=== PATIENT | male | born 1995 | race Two or more races ===

== ENCOUNTER 2022-06-28 20:02 | Emergency (ER) | payer OTHER ==
[~2022-06-28] VITALS: Ht 165.1 cm; Wt 73.5 kg
[2022-06-28 20:18] VITALS: BP 111/72
[2022-06-28] MEDS ORDERED: TETANUS-DIPTH-ACEL PERTUSSIS 0.5ML SYR Tdap IM ONE (21:30)
[2022-06-28] MEDS ORDERED: AMOX500T86 PO (21:33)
== END 2022-06-28 22:16 | disposition home or self-care (01) ==
LOC: ER 20:02
DX: S81.832A Puncture wound without foreign body, left lower leg, initial encounter (principal); S81.852A Open bite, left lower leg, initial encounter; Z79.2 Long term (current) use of antibiotics; W54.0XXA Bitten by dog, initial encounter; Y93.89 Activity, other specified; Y92.89 Other specified places as the place of occurrence of the external cause; Y99.0 Civilian activity done for income or pay
CPT/HCPCS: 90471; 90715

== ENCOUNTER 2023-10-22 08:35 | Emergency (ER) | payer OTHER ==
[~2023-10-22] VITALS: Ht 162.6 cm; Wt 77.0 kg
[~2023-10-22 08:35] MED LIST: AMOX500T86 PO
[2023-10-22 09:03] VITALS: BP 114/54; PULSE 61; RESP 19; TEMP 97.4; O2SAT 97
[2023-10-22] MEDS ORDERED: AMOX500T86 PO (09:17)
[2023-10-22] MEDS: TETANUS-DIPTH-ACEL PERTUSSIS 0.5ML SYR Tdap IM ONE (09:19)
== END 2023-10-22 09:23 | disposition home or self-care (01) ==
LOC: ER 08:35
DX: S81.831A Puncture wound without foreign body, right lower leg, initial encounter (principal); S81.851A Open bite, right lower leg, initial encounter; W54.0XXA Bitten by dog, initial encounter; Y93.89 Activity, other specified; Y92.69 Other specified industrial and construction area as the place of occurrence of the external cause; Y99.8 Other external cause status
CPT/HCPCS: 90471; 90715

== ENCOUNTER 2024-06-26 15:16 | Inpatient (IN) | payer MEDICAID, OTHER ==
[~2024-06-26] VITALS: Ht 162.6 cm; Wt 75.5 kg
[2024-06-26] MEDS: DICYCLOMINE HCL (10MG/ML) 2 ML AMPULE IM ONE (15:51)
[2024-06-26] MEDS: ACETAMINOPHEN 325 MG TAB PO ONE ×2 (15:52→23:27)
[2024-06-26] MEDS: ONDANSETRON ODT 4 MG TAB PO ONE (15:53)
[2024-06-26 16:06] LABS: Anion Gap 10 (5-15); Calcium 9.8 mg/dL (8.7-10.4); Carbon Dioxide 24 mmol/L (20-31)
[2024-06-26 16:07] LABS: Basophils # (auto) 0 10 ^3/uL (0-0.2); Basophils % (auto) 0.2 % (0.0-2.0); Eosinophils # (auto) 0 10 ^3/uL (0-0.8); Eosinophils % (auto) 0.2 % (0.0-7.0); Hematocrit 48.1 % (41.0-53.0); Hemoglobin 16.8 g/dL (13.5-17.5); Lymphocytes # (auto) 0.6 10 ^3/uL (0.4-5.4); Lymphocytes % (auto) 5.9 % (10.0-50.0); Mean Corpuscular Hemoglobin 31.1 pg (28.0-32.0); Mean Corpuscular Volume 88.8 fL (80.0-100.0); Monocytes # (auto) 0.4 10 ^3/uL (0-1.3); Monocytes % (auto) 3.8 % (0.0-12.0); Neutrophils # (auto) 8.4 10 ^3/uL (1.6-8.6); Neutrophils % (auto) 89.9 % (37.0-80.0); Nucleated Red Blood Cells % 0.3 %; Platelet Count (auto) 144 10^3/uL (140-450); Red Blood Cells 5.42 10^6/uL (4.5-5.90); Red Cell Distribution Width 13.7 % (11.8-14.3); White Blood Cell 9.3 10^3/uL (4.4-10.8)
[2024-06-26 16:11] LABS: BUN/Creatinine Ratio 12.8 (10.0-20.0); Blood Urea Nitrogen 14 mg/dL (9-23); Chloride 98 mmol/L (98-107); Glucose 111 mg/dL (74-106); Lipase 35 U/L (12-53); Potassium 3.2 mmol/L (3.5-5.1); Sodium 132 mmol/L (136-145)
--- NOTE | 2024-06-26 16:12 | ED.PDOC ---
History of Present Illness HPI Comments 28M presents to the ER w/ no prior Hx associated to the c/c of ABD pain. Pt reports on having diffuse juan-umbilical pain which started yesterday associated w/ a fever or 100.1 and N/V/D. Denies chills, SOB, CP or other associated symptoms, modifiers or recent injuries or sick contact at this time. Patient's temperature was 101 on arrival. Chief Complaint: Abdominal Pain Time Seen by MD: 15:45 Primary Care Provider: none Reviewed Notes: Nurses Notes, Medications, Allergies Allergies: Coded Allergies: NO KNOWN ALLERGIES (Unverified , 06/28/22) Home Meds Active Scripts Amoxicillin & Pot Clavulanate (Augmentin) 500 Mg Tab, 1 TAB PO BID, #14 TAB Prov:HAMILTON STOLL 10/22/23 Amoxicillin & Pot Clavulanate (Augmentin) 500 Mg Tab, 500 MG PO BID for 10 Days, #20 TAB Prov:KALI WILLAMS 06/28/22 Information Source: Patient Mode of Arrival: Ambulatory Severity: Moderate Timing: Hours, Days Duration: Since onset, Hours Prehospital treatment: None Past Medical History PAST MEDICAL HISTORY: Denies Surgical History: Denies all surgeries Family History Family History: Reviewed,noncontributory to illness, Unknown Social History Smoker: Non-Smoker Alcohol: Denies ETOH Use Drugs: Denies Drug Use Lives In: Home Constitutional: denies: chills, diaphoresis, fatigue, fever, malaise, sweats, weakness, others EENTM: denies: blurred vision, double vision, ear bleeding, ear discharge, ear drainage, ear pain, ear ringing, eye pain, eye redness, hearing loss, mouth pain, mouth swelling, nasal discharge, nose bleeding, nose congestion, nose pain, photophobia, tearing, throat pain, throat swelling, voice changes, others Respiratory: denies: cough, hemoptysis, orthopnea, SOB at rest, shortness of breath, SOB with excertion, stridor, wheezing, others Cardiovascular: denies: chest pain, dizzy spells, diaphoresis, Dyspnea on exertion, edema, irregular heart beat, left arm pain, lightheadedness, palpitations, PND, syncope, others Gastrointestinal: reports: abdominal pain, diarrhea, nausea, vomiting; denies: abdomen distended, blood streaked bowels, constipated, dysphagia, difficulty swallowing, hematemesis, melena, poor appetite, poor fluid intake, rectal bleeding, rectal pain, others Genitourinary: denies: burning, dysuria, flank pain, frequency, hematuria, incontinence, penile discharge, penile sore, pain, testicle pain, testicle swelling, urgency, others Neurological: denies: dizziness, fainting, headache, left sided numbness, left sided weakness, numbness, paresthesia, pre-existing deficit, right sided numbne ss, right sided weakness, seizure, speech problems, tingling, tremors, weakness, others Musculoskeletal: denies: back pain, gout, joint pain, joint swelling, muscle pain, muscle stiffness, neck pain, others Integumetry: denies: bruises, change in color, change in hair/nails, dryness, laceration, lesions, lumps, rash, wounds, others Allergic/Immunocompromised: denies: Difficulty Healing, Frequent Infections, Hives, Itching, others Hematologic/Lymphatic: denies: anemia, blood clots, easy bleeding, easy bruising, swollen glands, others Endocrine: denies: excessive hunger, excessive sweating, excessive thirst, excessive urination, flushing, intolerance to cold, intolerance to heat, unexplained weight gain, unexplained weight loss, others Psychiatric: denies: anxiety, bipolar disorder, depression, hopeless, panic disorder, schizophrenia, sleepless, suicidal, others All Other Systems: Reviewed and Negative Physical Exam General Appearance: Moderate Distress (Due to abdominal pain concerns.), Normal HEENT: Normal ENT Inspection, Pharynx Normal, TMs Normal Neck: Full Range of Motion, Non-Tender, Normal, Normal Inspection Respiratory: Chest Non-Tender, Lungs Clear, No Accessory Muscle Use, No Respiratory Distress, Normal Breath Sounds Cardiovascular: No Edema, No JVD, No Murmur, No Gallop, Normal Peripheral Pulses, Regular Rate/Rhythm Breast Exam: Deferred Gastrointestinal: Other (Diffuse periumbilical tenderness to palpation extending towards her right lower quadrant. No definitive rebound. Abdomen was mildly rigid. No signs of trauma.) Genitalia: Deferred Pelvic: Deferred Rectal: Deferred Extremities: No calf tenderness, Normal capillary refill, Normal inspection, Normal range of motion, Non-tender, No pedal edema Musculoskeletal : Apperance: Normal Neurologic: Alert, No Motor Deficits, Normal Affect, Normal Mood, No Sensory Deficits Cerebellar Function: Normal Reflexes: Normal Skin: Dry, Normal Color, Warm Lymphatic: No Adenopathy Was a procedure done? Was a procedure done?: No Differential Dx Considerations may include: Gastroenteritis, constipation, acute appendicitis, pancreatitis X-Ray, Labs, Meds, VS Vital Signs Date Time Temp Pulse Resp B/P (MAP) Pulse Ox O2 Delivery O2 Flow Rate FiO2 06/26/24 15:25 101.0 124 20 119/76 (90) 96 Lab Test 06/26/24 15:51 06/26/24 15:36 Range/Units Influenza Type A Antigen Pending Influenza Type B Antigen Pending SARS-CoV-2 Antigen (Rapid) Pending White Blood Count 9.3 4.4-10.8 10^3/uL Red Blood Count 5.42 4.5-5.90 10^6/uL Hemoglobin 16.8 13.5-17.5 g/dL Hematocrit 48.1 41.0-53.0 % Mean Corpuscular Volume 88.8 80.0-100.0 fL Mean Corpuscular Hemoglobin 31.1 28.0-32.0 pg Mean Corpuscular Hemoglobin Concent 35.0 32.0-36.0 g/dL Red Cell Distribution Width 13.7 11.8-14.3 % Platelet Count 144 140-450 10^3/uL Mean Platelet Volume 9.3 6.9-10.8 fL Neutrophils (%) (Auto) 89.9 H 37.0-80.0 % Lymphocytes (%) (Auto) 5.9 L 10.0-50.0 % Monocytes (%) (Auto) 3.8 0.0-12.0 % Eosinophils (%) (Auto) 0.2 0.0-7.0 % Basophils (%) (Auto) 0.2 0.0-2.0 % Neutrophils # (Auto) 8.4 1.6-8.6 10 ^3/uL Lymphocytes # (Auto) 0.6 0.4-5.4 10 ^3/uL Monocytes # (Auto) 0.4 0-1.3 10 ^3/uL Eosinophils # (Auto) 0 0-0.8 10 ^3/uL Basophils # (Auto) 0 0-0.2 10 ^3/uL Nucleated Red Blood Cells 0.3 % Sodium Level 132 L 136-145 mmol/L Potassium Level 3.2 L 3.5-5.1 mmol/L Chloride Level 98 98-107 mmol/L Carbon Dioxide Level 24 20-31 mmol/L Anion Gap 10 5-15 Blood Urea Nitrogen 14 9-23 mg/dL Creatinine 1.09 0.700-1.30 mg/dL Glomerular Filtration Rate Calc 94 >90 mL/min BUN/Creatinine Ratio 12.8 10.0-20.0 Serum Glucose 111 H 74-106 mg/dL Calcium Level 9.8 8.7-10.4 mg/dL Lipase 35 12-53 U/L Current Medications Medications (Trade) Dose Ordered Sig/Hany Route Start Time Stop Time Status Last Admin Acetaminophen (Tylenol Tablet) 1,000 mg ONCE ONCE PO 06/26/24 15:30 06/26/24 15:31 DC 06/26/24 15:52 Dicyclomine HCl (Bentyl Injection) 20 mg ONCE ONCE IM 06/26/24 15:30 06/26/24 15:31 DC 06/26/24 15:51 Ondansetron HCl (Zofran Po) 4 mg ONCE ONCE PO 06/26/24 15:30 06/26/24 15:31 DC 06/26/24 15:53 X-Ray, Labs, Meds, VS Comment Radiology contacted me and informed me with the patient appears to be suffering from an acute appendicitis with a suspected rupture. I contacted Dr. Catherine and advised him of imaging and laboratory results. He agreed to consult for surgical evaluation and intervention. Time of 1ST Reevaluation: 16:57 Reevaluation 1ST: Improved Consultation: PCP, Surgery Patient Education/Counseling: Diagnosis, Treatment, Prognosis Family Education/Counseling: Diagnosis, Treatment, No Family Present Departure 1 Departure Time of Disposition: 16:57 Impression: Primary Impression: Acute appendicitis Disposition: 09 ADMITTED INPATIENT Condition: Fair Discharged With: Self, Relative Critical Care Note Critical Care Time?: No Stability Stability form required: No Heart Score Heart Score: Heart Score Response (Comments) Value History N/A 0 EKG N/A 0 Age N/A 0 Risk Factors N/A 0 Troponin N/A 0 Total 0 I personally scribed for JANNIE LOVING MD ([email or web address]) on 06/26/24 at 16:12. Electronically submitted by Andrew Meza ([email or web address]). JANNIE LOVING MD Jun 26, 2024 16:12 NORA LEDESMA Jun 26, 2024 16:58
--- NOTE | 2024-06-26 16:44 | DVH ---
CLINICAL INFORMATION: 28 years old, Male; Diffuse periumbilical pain. TECHNIQUE: Axial CT images of the abdomen and pelvis were obtained without IV contrast. Coronal and sagittal reformatted images were obtained, reviewed, and stored. Evaluation of the parenchymal organs is limited without IV contrast. Evaluation of the bowel and mesentery is limited without oral contra st. All CT scans at this medical facility are performed using dose modulation techniques as appropria te to a performed exam including the following: Automated exposure control was utilized; adjustment o f the MA and/or KV according to patient size; and use of iterative reconstruction technique. CTDIvol = 12.13 mGy DLP = 720.07 mGy-cm COMPARISON: None FINDINGS: Lung bases: Lung bases are clear. Liver: Grossly unremarkable in its noncontrast enhanced appearance. No abnormal density or focal les ion identified. Biliary: No calcified gallstones or biliary ductal dilatation. Spleen: Unremarkable. Pancreas: Grossly unremarkable in its noncontrast enhanced appearance. Adrenal glands: Unremarkable. No mass. Kidneys: No hydronephrosis. No renal or ureteral calculi. Aorta/Vascular: No aneurysm or significant calcification. Retroperitoneum: No mass or lymphadenopathy. Bowel/mesentery: Nonspecific nondilated fluid-filled small bowel loops. No small bowel obstruction. A ppendix is , with moderate periappendiceal stranding and fluid consistent with acute appendicitis. Th ere is an appendicolith within the lumen of the appendix. There is a fluid collection and adjacent lo cule of gas in the right lower quadrant in close proximity to the appendix, measuring up to 3.5 x 3.8 x 4.6 cm, may be due to rupture with associated phlegmon. No free air visualized elsewhere in the ab domen or pelvis. Pelvic organs: Grossly unremarkable. Bladder: Unremarkable. No mass. Abdominal wall: No mass or hernia. Bones: No acute fracture or suspicious intraosseous lesion. IMPRESSION: 1. Findings consistent with acute appendicitis with suspected rupture, with adjacent 4.6 cm collectio n with fluid and small locules of gas, likely phlegmon. Limited evaluation for abscess on noncontrast enhanced CT. 2. Nonspecific nondilated fluid-filled small bowel loops, likely due to ileus. 3. Additional findings as described above. Critical findings Critical Result: Findings consistent with acute appendicitis with evidence for possible rupture and p hlegmon. Findings discussed with NORA SHAH by Dr. Middleton by phone at 06/26/2024 06:39 PM [employer], and peg owledged receipt and understanding of the findings. ..
[2024-06-26] MEDS: PIPERACILLIN-TAZO 4.5GM 100 ML IV ONE (17:14)
[2024-06-26 17:18] VITALS: PULSE 107; RESP 16; O2SAT 96
[2024-06-26 17:22] LABS: Rapid Influenza A Negative (Negative); Rapid Influenza B Negative (Negative)
[2024-06-26 17:26] LABS: COVID19 ANTIGEN SOFIA FIA NEGATIVE (NEGATIVE)
[2024-06-26 18:20] VITALS: PULSE 81; RESP 13; O2SAT 96
[2024-06-26 18:23] LABS: INR 1.13 (0.9-1.15); Partial Thromboplastin Time 29.1 SEC (24.5-34.5); Prothrombin Time 11.9 sec (9.3-11.8)
[2024-06-26 19:20] VITALS: PULSE 85; RESP 17; O2SAT 92
[2024-06-26] MEDS ORDERED: MORPHINE SULFATE INJ 2 MG/ml SYRG IV PRN (20:15)
[2024-06-26] MEDS ORDERED: NITROGLYCERIN 0.4 MG SL TAB SL PRN (20:15)
--- NOTE | 2024-06-26 20:23 | DVH ---
CHEST RADIOGRAPH Indication: preop Technique: Single frontal view of the chest was obtained Comparison: None FINDINGS: Lines and Tubes: None Lungs: No focal consolidation. Pleura: No effusion. No pneumothorax. Cardiomediastinal contours: Unremarkable Bones: No acute osseous abnormality. IMPRESSION: No acute cardiopulmonary disease.
[2024-06-26] MEDS: SOD CHL 0.9%/ KCL 20MEQ 1,000 ML IV ONE (20:48)
[2024-06-26] MEDS: MORPHINE SULFATE INJ 2 MG/ml SYRG IV PRN (20:48)
--- NOTE | 2024-06-26 23:20 | DVHHP2 ---
History of Present Illness Reason for Visit: Abdominal pain History of Present Illness 28-year-old male presents for evaluation of abdominal pain. Patient presents with a two day history of lower abdominal sharp pain with associated nausea and vomiting. He also noted intermittent fever. States the pain does not radiate. Currently rates the pain at 5/10 intensity. No other acute complaints reported. Past Medical History Denies Past Surgical History Denies Family History Noncontributory Smoke: No ALCOHOL: none Drugs: None Lives: with Family Review of Systems Review of Systems Review of systems are currently negative otherwise addressed in HPI. Allergies: Coded Allergies: NO KNOWN ALLERGIES (Unverified , 06/28/22) Medications Current Medications Medications Dose Ordered Sig/Hany Route Start Time Stop Time Status Last Admin Dose Admin Piperacillin Sod/ Tazobactam Sod 100 ml @ 25 mls/hr Q6HR IV 06/27/24 00:00 Ondansetron HCl 4 mg Q4HP PRN IV 06/26/24 20:15 Morphine Sulfate 2 mg Q4HPRN PRN IV 06/26/24 20:15 06/26/24 20:48 2 MG Nitroglycerin 0.4 mg Q5MINP PRN SL 06/26/24 20:15 Morphine Sulfate 2 mg Q30M PRN IV 06/26/24 20:15 Exam Vital Signs Vital Signs Date Time Temp Pulse Resp B/P (MAP) Pulse Ox O2 Delivery O2 Flow Rate FiO2 06/26/24 22:36 100.6 100.6 06/26/24 22:33 104 24 106/66 (79) 92 06/26/24 19:20 Room Air* 0 21 Exam Gen: 28-year-old male in mild distress Skin: Warm, dry, normal color and texture, no rash. HEENT: Normocephalic atraumatic, mucous membranes moist and pink. Neck: Cervical and supraclavicular nodes normal without enlargement, trachea is midline, thyroid gland is normal without masses. Pulmonary: Clear to auscultation and percussion bilaterally. Cardiac: Regular rate and rhythm. No murmur Abdomen: Soft, lower abdominal tenderness, nondistended, bowel sounds present all 4 quadrants, no guarding, no rigidity, no organomegaly. Extremities: No cyanosis, clubbing, no edema Neuro: Cranial nerves II through XII grossly intact, normal affect and speech, no focal motor deficits. Labs/Xrays ORDERING PHYSICIAN: JAVIER YUNG AGACNP PROCEDURE(s): CXR1 - CHEST XRAY 1 VIEW REASON: preop ORDER NUMBER(s): [id number], ACCESSION NUMBER(s): [id number] CHEST RADIOGRAPH Indication: preop Technique: Single frontal view of the chest was obtained Comparison: None FINDINGS: Lines and Tubes: None Lungs: No focal consolidation. Pleura: No effusion. No pneumothorax. Cardiomediastinal contours: Unremarkable Bones: No acute osseous abnormality. IMPRESSION: No acute cardiopulmonary disease. RING PHYSICIAN: NORA LEDESMA PAC PROCEDURE(s): ABPL - CT AB PEL WO CON-NO ORAL OR IV REASON: Diffuse periumbilical pain ORDER NUMBER(s): [id number], ACCESSION NUMBER(s): [id number] CLINICAL INFORMATION: 28 years old, Male; Diffuse periumbilical pain. TECHNIQUE: Axial CT images of the abdomen and pelvis were obtained without IV contrast. Coronal and sagittal reformatted images were obtained, reviewed, and stored. Evaluation of the parenchymal organs is limited without IV contrast. Evaluation of the bowel and mesentery is limited without oral contrast. All CT scans at this medical facility are performed using dose modulation techniques as appropriate to a performed exam including the following: Automated exposure control was utilized; adjustment of the MA and/or KV according to patient size; and use of iterative reconstruction technique. CTDIvol = 12.13 mGy DLP = 720.07 mGy-cm COMPARISON: None FINDINGS: Lung bases: Lung bases are clear. Liver: Grossly unremarkable in its noncontrast enhanced appearance. No abnormal density or focal lesion identified. Biliary: No calcified gallstones or biliary ductal dilatation. Spleen: Unremarkable. Pancreas: Grossly unremarkable in its noncontrast enhanced appearance. Adrenal glands: Unremarkable. No mass. Kidneys: No hydronephrosis. No renal or ureteral calculi. Aorta/Vascular: No aneurysm or significant calcification. Retroperitoneum: No mass or lymphadenopathy. Bowel/mesentery: Nonspecific nondilated fluid-filled small bowel loops. No small bowel obstruction. Appendix is , with moderate periappendiceal stranding and fluid consistent with acute appendicitis. There is an appendicolith within the lumen of the appendix. There is a fluid collection and adjacent locule of gas in the right lower quadrant in close proximity to the appendix, measuring up to 3.5 x 3.8 x 4.6 cm, may be due to rupture with associated phlegmon. No free air visualized elsewhere in the abdomen or pelvis. Pelvic organs: Grossly unremarkable. Bladder: Unremarkable. No mass. Abdominal wall: No mass or hernia. Bones: No acute fracture or suspicious intraosseous lesion. IMPRESSION: 1. Findings consistent with acute appendicitis with suspected rupture, with adjacent 4.6 cm collection with fluid and small locules of gas, likely phlegmon. Limited evaluation for abscess on noncontrast enhanced CT. 2. Nonspecific nondilated fluid-filled small bowel loops, likely due to ileus. 3. Additional findings as described above. Critical findings Critical Result: Findings consistent with acute appendicitis with evidence for possible rupture and phlegmon. Findings discussed with DR LEDESMA NORA by Dr. Middleton by phone at 06/26/2024 06:39 PM [employer] INTERN, and acknowledged receipt and understanding of the findings. .. Labs Test 06/26/24 17:52 06/26/24 15:51 06/26/24 15:36 Range/Units Prothrombin Time 11.9 H 9.3-11.8 sec Prothrombin Time INR 1.13 0.9-1.15 Activated Partial Thromboplast Time 29.1 24.5-34.5 SEC Influenza Type A Antigen Negative Negative Influenza Type B Antigen Negative Negative SARS-CoV-2 Antigen (Rapid) Negative NEGATIVE White Blood Count 9.3 4.4-10.8 10^3/uL Red Blood Count 5.42 4.5-5.90 10^6/uL Hemoglobin 16.8 13.5-17.5 g/dL Hematocrit 48.1 41.0-53.0 % Mean Corpuscular Volume 88.8 80.0-100.0 fL Mean Corpuscular Hemoglobin 31.1 28.0-32.0 pg Mean Corpuscular Hemoglobin Concent 35.0 32.0-36.0 g/dL Red Cell Distribution Width 13.7 11.8-14.3 % Platelet Count 144 140-450 10^3/uL Mean Platelet Volume 9.3 6.9-10.8 fL Neutrophils (%) (Auto) 89.9 H 37.0-80.0 % Lymphocytes (%) (Auto) 5.9 L 10.0-50.0 % Monocytes (%) (Auto) 3.8 0.0-12.0 % Eosinophils (%) (Auto) 0.2 0.0-7.0 % Basophils (%) (Auto) 0.2 0.0-2.0 % Neutrophils # (Auto) 8.4 1.6-8.6 10 ^3/uL Lymphocytes # (Auto) 0.6 0.4-5.4 10 ^3/uL Monocytes # (Auto) 0.4 0-1.3 10 ^3/uL Eosinophils # (Auto) 0 0-0.8 10 ^3/uL Basophils # (Auto) 0 0-0.2 10 ^3/uL Nucleated Red Blood Cells 0.3 % Sodium Level 132 L 136-145 mmol/L Potassium Level 3.2 L 3.5-5.1 mmol/L Chloride Level 98 98-107 mmol/L Carbon Dioxide Level 24 20-31 mmol/L Anion Gap 10 5-15 Blood Urea Nitrogen 14 9-23 mg/dL Creatinine 1.09 0.700-1.30 mg/dL Glomerular Filtration Rate Calc 94 >90 mL/min BUN/Creatinine Ratio 12.8 10.0-20.0 Serum Glucose 111 H 74-106 mg/dL Calcium Level 9.8 8.7-10.4 mg/dL Lipase 35 12-53 U/L Assessment/Plan Assessment/Plan Assessment Acute appendicitis Acute abdominal pain Hypokalemia Plan Admit the patient to telemetry to the hospitalist Surgical consultation, provider in the emergency department [place] contacted general surgeon Dr. Catherine who was aware of the case and advised to admit the patient. Zosyn Maintenance IV fluids Pain management Continue treatment per orders. Plan discussed with: Patient My Orders Orders - JAVIER YUNG AGACNP Procedure Category Date Status Time Piperacillin-Tazob PHA 06/27/24 In Process 3.375gm (Zosyn 3.375g 00:00 Sod Chl 0.9%/ Kcl PHA 06/26/24 In Process 20meq 20:15 Basic Metabolic Panel LAB 06/27/24 Verified 04:00 Admit ADMIT 06/26/24 Transmitted 20:07 Ondansetron Hcl PHA 06/26/24 In Process (Zofran) 20:15 Complete Blood Count LAB 06/27/24 Verified 04:00 Condition: Fair [facility] 06/26/24 In Process 20:07 Bedrest With Bathroom [facility] 06/26/24 In Process Privileg 20:07 Morphine Sulfate PHA 06/26/24 In Process Injection 20:15 Nitroglycerin PHA 06/26/24 In Process Sublingual (Ntrostat 20:15 Morphine Sulfate PHA 06/26/24 In Process Injection 20:15 Stat Ekg For Chest [facility] 06/26/24 In Process Pain 20:07 Notify Of Changes [facility] 06/26/24 In Process From Base 20:07 Side Show Entertainer For [facility] 06/26/24 In Process 24 Hours 20:07 Emergency Dysrhythmia [facility] 06/26/24 In Process Protocol 20:07 Rhythm Strips Once [facility] 06/26/24 In Process Every Shift 20:07 Oxygen By Nasal RT 06/26/24 Transmitted Cannula 20:07 Chest Xray 1 View XY 06/26/24 Resulted 20:07 Date of Service: Jun 26, 2024 Billing Provider: JAVIER YUNG Common Visit Codes: [id number] INP/OBS CARE (HIGH) JAVIER YUNG Jun 26, 2024 23:20
[2024-06-26 23:38] VITALS: BP 110/74; PULSE 100; RESP 21; TEMP 100; O2SAT 98
[2024-06-27] VITALS (9 sets, daily range): BP systolic 105–112; BP diastolic 57–74; PULSE 79–100; RESP 12–21; TEMP 98.2–100.1; O2SAT 95–100
[2024-06-27] MEDS: PIPERACILLIN-TAZOB 3.375GM 100 ML IV SCH (00:15)
[2024-06-27] MEDS ORDERED: BIOT1CAP OR (00:46)
[2024-06-27] MEDS ORDERED: MULT-1018 PO (00:46)
[2024-06-27] MEDS ORDERED: ASCO500T11 PO (00:46)
[2024-06-27] MEDS: ONDANSETRON HCL 4 MG/2 ML VIAL IV PRN (02:59)
[2024-06-27 06:56] LABS: Basophils # (auto) 0 10 ^3/uL (0-0.2); Basophils % (auto) 0.1 % (0.0-2.0); Eosinophils # (auto) 0.1 10 ^3/uL (0-0.8); Eosinophils % (auto) 0.7 % (0.0-7.0); Hematocrit 45.4 % (41.0-53.0); Hemoglobin 15.6 g/dL (13.5-17.5); Lymphocytes # (auto) 0.6 10 ^3/uL (0.4-5.4); Lymphocytes % (auto) 6.6 % (10.0-50.0); Mean Corpuscular Hemoglobin 30.7 pg (28.0-32.0); Mean Corpuscular Hgb Conc. 34.3 g/dL (32.0-36.0); Mean Corpuscular Volume 89.4 fL (80.0-100.0); Monocytes # (auto) 0.7 10 ^3/uL (0-1.3); Monocytes % (auto) 7.7 % (0.0-12.0); Neutrophils # (auto) 7.9 10 ^3/uL (1.6-8.6); Neutrophils % (auto) 84.9 % (37.0-80.0); Platelet Count (auto) 130 10^3/uL (140-450); Red Blood Cells 5.08 10^6/uL (4.5-5.90); Red Cell Distribution Width 13.4 % (11.8-14.3); White Blood Cell 9.3 10^3/uL (4.4-10.8)
[2024-06-27 07:10] LABS: Chloride 99 mmol/L (98-107)
[2024-06-27 07:11] LABS: Anion Gap 9 (5-15); Calcium 9.2 mg/dL (8.7-10.4); Carbon Dioxide 24 mmol/L (20-31)
[2024-06-27 07:12] LABS: Potassium 3.4 mmol/L (3.5-5.1); Sodium 132 mmol/L (136-145)
[2024-06-27 07:16] LABS: BUN/Creatinine Ratio 11.9 (10.0-20.0); Blood Urea Nitrogen 12 mg/dL (9-23); Glucose 100 mg/dL (74-106)
[2024-06-27] MEDS: SUCCINYLCHOLINE CHLORIDE 20 MG/ML 10ML VIAL IV ONE (07:21)
[2024-06-27] MEDS ORDERED: fentaNYL CITRATE 100 MCG/2 ML VL ONE (07:25)
[2024-06-27] MEDS ORDERED: MEPERIDINE HCL (25 MG/ML) 1ML VIAL ONE (07:25)
[2024-06-27] MEDS ORDERED: MIDAZOLAM HCL 2MG/2ML 2ml VIAL (1mg/ml) ONE (07:26)
--- NOTE | 2024-06-27 07:32 | DVHINCON2 ---
Date of service: Jun 27, 2024 Reason for Consultation appendicitis History of Present Illness History Source: Patient, RN Notes, MD Notes Exam Limitations: No limitations HPI 28 year old male presented to the ER for evaluation of abdominal pain. Patient states his pain started 3 days ago. His abdominal pain is in the right lower quadrant sharp 10/10 associated with nausea and vomiting. Home Meds Active Scripts Amoxicillin & Pot Clavulanate (Augmentin) 500 Mg Tab, 1 TAB PO BID, #14 TAB Prov:HAMILTON STOLL PA 10/22/23 Amoxicillin & Pot Clavulanate (Augmentin) 500 Mg Tab, 500 MG PO BID for 10 Days, #20 TAB Prov:KALI WILLAMS ASSISTANCE COORDINATOR 06/28/22 Reported Medications Multiple Vitamin (Multivitamins) Tab, 1 TAB PO DAILY, #90 TAB 3 Refills 06/27/24 Biotin (BIOTIN) 1 Mg Cap, 1 MG OR, CAP 06/27/24 Ascorbic Acid (VITAMIN C TABLET) 500 Mg Tb, 1 TAB PO DAILY, #30 TAB 06/27/24 Chief Complaint of Abdominal/F: Abdominal pain, Vomiting, Nausea Onset/Duration of Abd/Flank Pa: Persistent Quality of Abd/Flank Pain: Sharpness Location of Abdominal Onset: RLQ Abdominal Pain Radiation: No radiation Past Medical History Cardiac: No pertinent Hx Pulmonary: No pertinent Hx Central Nervous System: No pertinent Hx GI: No pertinent Hx Hepatobiliary: No pertinent Hx Psychiatric: No pertinent Hx Musculoskeletal: No pertinent Hx Rheumotologic: No pertinent Hx Infectious Disease: No peritnent Hx ENT: No pertinent Hx Renal/: No pertinent Hx Endocrine: No pertinent Hx Dermatology: No pertinent Hx Past Surgical History: Other (finger) Smoker: No Hx (Negative) Alocohol: None Drugs: None Lives with: With family Review of Systems Constitutional: No symptom reported Ears, Nose, & Throat: No symptom reported Eyes: No symptom reported Pulmonary/Respiratory: No symptom reported Cardiovascular: No symptom reported Gastrointestinal: Nausea, Vomiting, Abdominal Pain Genitourinary: No symptom reported Musculoskeletal: No symptom reported Skin: No symptom reported Psychiatric: No symptom reported Endocrine: No symptom reported Hemotologic/Lymphatic: No symptom reported H&P Exam Vital Signs Vital Signs Date Time Temp Pulse Resp B/P (MAP) Pulse Ox O2 Delivery O2 Flow Rate FiO2 06/27/24 05:58 96 18 114/78 06/27/24 05:00 98.2 97 98.2 06/26/24 23:38 Room Air* 0 21 General Appeara: Well developed, Well nourished, Normal Appearance Head Exam: Normal inspection Neck Exam: Normal inspection, Non-tender Eye Exam: bilateral eye Normal inspection, bilateral eye PERRL Nasal Exam: Normal inspection Mouth: Normal Inspection Pulmonary/Respiratory: Normal inspection, Normal breath sounds Cardiovascular/Chest: Normal inspection Abdominal Exam: Normal bowel sounds, Other (tender) Rectal Exam: Deferred Back Exam: Normal inspection Pelvic Exam: Not done Male Genital Exam: Not done Tendon/ Neuro: Normal sensation, 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 Exam: Normal hearing, Normal speech, PERRL Neuro/Mental St: Alert, Oriented Appearance: Appropriate appearance Eye contact/ Speech: Cooperative, Good eye contact, Normal speech Skin Exam: Normal inspection, Normal color, Warm/dry Labs/Xrays Labs Test 06/27/24 06:22 06/26/24 17:52 06/26/24 15:51 06/26/24 15:36 Range/Units White Blood Count 9.3 4.4-10.8 10^3/uL Red Blood Count 5.08 4.5-5.90 10^6/uL Hemoglobin 15.6 13.5-17.5 g/dL Hematocrit 45.4 41.0-53.0 % Mean Corpuscular Volume 89.4 80.0-100.0 fL Mean Corpuscular Hemoglobin 30.7 28.0-32.0 pg Mean Corpuscular Hemoglobin Concent 34.3 32.0-36.0 g/dL Red Cell Distribution Width 13.4 11.8-14.3 % Platelet Count 130 L 140-450 10^3/uL Mean Platelet Volume 9.5 6.9-10.8 fL Neutrophils (%) (Auto) 84.9 H 37.0-80.0 % Lymphocytes (%) (Auto) 6.6 L 10.0-50.0 % Monocytes (%) (Auto) 7.7 0.0-12.0 % Eosinophils (%) (Auto) 0.7 0.0-7.0 % Basophils (%) (Auto) 0.1 0.0-2.0 % Neutrophils # (Auto) 7.9 1.6-8.6 10 ^3/uL Lymphocytes # (Auto) 0.6 0.4-5.4 10 ^3/uL Monocytes # (Auto) 0.7 0-1.3 10 ^3/uL Eosinophils # (Auto) 0.1 0-0.8 10 ^3/uL Basophils # (Auto) 0 0-0.2 10 ^3/uL Nucleated Red Blood Cells 0.0 % Sodium Level 132 L 136-145 mmol/L Potassium Level 3.4 L 3.5-5.1 mmol/L Chloride Level 99 98-107 mmol/L Carbon Dioxide Level 24 20-31 mmol/L Anion Gap 9 5-15 Blood Urea Nitrogen 12 9-23 mg/dL Creatinine 1.01 0.700-1.30 mg/dL Glomerular Filtration Rate Calc 103 >90 mL/min BUN/Creatinine Ratio 11.9 10.0-20.0 Serum Glucose 100 74-106 mg/dL Calcium Level 9.2 8.7-10.4 mg/dL Prothrombin Time 11.9 H 9.3-11.8 sec Prothrombin Time INR 1.13 0.9-1.15 Activated Partial Thromboplast Time 29.1 24.5-34.5 SEC Influenza Type A Antigen Negative Negative Influenza Type B Antigen Negative Negative SARS-CoV-2 Antigen (Rapid) Negative NEGATIVE Lipase 35 12-53 U/L Assessment/Plan Problem List: (1) Acute appendicitis Plan patient states his abdominal pain started 3 days ago and became progressively worse. His pain is right lower quadrant sharp 10/10 associated with nausea and vomiting rebound tenderness , right lower quadrant tender plan: Laparoscopic possibly open appendectomy today explained operation risks and complications in detail Plan discussed with: Patient, Other (Dr. Catherine) Visit Coding Surgery Date of Service if different f: Jun 27, 2024 Billing Provider: ADELINA CATHERINE MD Surgery Visit Codes: 13266 - INP CONSULT <80 MIN JUAN M ABERNATHY SIEVE MAKER Jun 27, 2024 07:32
[2024-06-27] MEDS: BUPIVACAINE 0.25% INJ 50ML VIAL ONE (08:10)
[2024-06-27] MEDS: LIDOCAINE W/ EPINEPHRINE 1% 20ML VIAL ONE (08:10)
[2024-06-27] MEDS ORDERED: ONDANSETRON HCL 4 MG/2 ML VIAL ONE (08:45)
[2024-06-27] MEDS ORDERED: PROPOFOL 10 MG/ML 20 ML IV ONE (08:45)
[2024-06-27] MEDS ORDERED: DexAMETHasone SOD PHOS 10MG/1ML VIAL INJ ONE (08:45)
[2024-06-27] MEDS ORDERED: SUGAMMADEX 200mg/2ml Vial (100MG/ML) IV ONE (08:46)
[2024-06-27] MEDS ORDERED: KETOROLAC TROMETH 30 MG/ML 1ML VIAL ONE (08:54)
[2024-06-27] MEDS ORDERED: ONDANSETRON HCL 4 MG/2 ML VIAL IV PRN (09:00)
[2024-06-27] MEDS ORDERED: HYDROMORPHONE HCL 1 MG/ML INJ IV PRN (09:00)
[2024-06-27] MEDS: ONDANSETRON HCL 4 MG/2 ML VIAL IV ONE (09:15)
[2024-06-27] MEDS ORDERED: ePHEDrine SULFATE 50 MG/ML AMP IV PRN (09:15)
[2024-06-27] MEDS ORDERED: MORPHINE SULFATE 4 MG/ML SYR/VIAL IV PRN (09:15)
[2024-06-27] MEDS ORDERED: MIDAZOLAM HCL 2MG/2ML 2ml VIAL (1mg/ml) IV PRN (09:15)
[2024-06-27] MEDS ORDERED: hydrALAZINE HCL 20 MG/ML VL IV PRN (09:15)
[2024-06-27] MEDS ORDERED: HYDROmorphone HCL 2 MG/ML VL/or syr IV PRN (09:15)
[2024-06-27] MEDS: KETOROLAC TROMETH 30 MG/ML 1ML VIAL IV ONE (09:15)
[2024-06-27] MEDS: ceFAZolin 2 GM/D5W50ml 50 ML IV SCH (10:13)
--- NOTE | 2024-06-27 10:55 | DVHOP ---
DATE OF SURGERY: 06/27/2024 PREOPERATIVE DIAGNOSIS: Ruptured appendicitis. POSTOPERATIVE DIAGNOSIS: Ruptured appendicitis. SURGEON: Dave Catherine MD PRINTER FLOOR COVERING ASSISTANT: Bam Romo. ANESTHESIA: General endotracheal. ANESTHESIOLOGIST: Dr. Chavez. PROCEDURE: Laparoscopy converted to open appendectomy. DESCRIPTION OF PROCEDURE: Under general endotracheal anesthesia, with the patient's skin prepped and draped, supraumbilical incision was made and Veress needle inserted into the peritoneal cavity by the hanging drop technique in order to establish pneumoperitoneum to 15 mmHg pressure by insufflation with carbon dioxide. With the abdomen fully distended, the needle was removed and replaced with a 5 mm trocar port through which a 0-degree viewing laparoscope was inserted and under direct vision, 5 mm and 10 mm ports inserted through the abdominal wall in the subxiphoid and infraumbilical midline respectively. Instrumentation was introduced and laparoscopy was accomplished, revealing a ruptured appendicitis with a localized abscess, which was evacuated. Cultures were submitted of the peritoneal fluid, which was aspirated. An attempt at mobilizing the appendix was unsuccessful due to much inflammatory reaction and the operation was converted to an open procedure, at which point the appendix and the periappendiceal phlegmon were delivered into the wound. Appendix was traced to its confluence with the cecum where its base was transected and divided with an Endo-FLORENTIN stapler. Several applications were utilized in order to divide the inflamed appendix and exuberant mesoappendix. The specimen was removed from the field. The right lower quadrant was profusely irrigated. A 10 mm August-Guzman drain was placed into the right pelvis and exteriorized through an incision in the supraumbilical skin created for the 5 mm trocar port site. This was secured with a 3-0 nylon suture. Subsequently, following assurance of complete hemostasis, closure was accomplished using #1 double stranded PDS sutures, 2-0 Monocryl sutures, Steri-Strips and Dermabond. The patient remained stable throughout the procedure, left the operating room following an accurate needle and sponge count. MD OVIDIO Jung/INNA/RADHA TID: [id number] RECEIPT: [id number]
[2024-06-27] MEDS: POTASSIUM CHL 20 Meq TABLET PO ONE (12:23)
[2024-06-27] MEDS: D5W/SOD CHL 0.45%/KCL 20MEQ 1,000 ML IV SCH (12:26)
[2024-06-27] MEDS: metroNIDAZOLE 500MG/100ML 100 ML IV SCH (14:45)
--- NOTE | 2024-06-27 15:38 | DVHPNRES ---
Progress Note Date Seen: Jun 27, 2024 Resident Creating Document: MARIA TERESA PANDEY RESIDENT Has the PT tested + for MRSA If YES, has PT been informed?: No Medical Necessity Reason Pt with a Central, PICC or Fol: No Subjective Review of Systems This is a 28-year-old male with no past medical history per patient, who presented to the ED with chief complaint of acute abdominal pain. The patient reported a two day history of lower abdominal pain that was characterized by sharp pain rated as 8/10 on the pain scale localized in the right lower quadrant. The patient also reported associated nausea and vomiting with intermittent fever. The patient states that the pain was localized with no specific pattern of radiation. Initial CT scan of the abdomen and pelvis showed acute appendicitis with suspected rupture showing a 4.6 cm of collection fluid and small locule of gas likely phlegmon. Patient was started on IV antibiotics, IV fluids, pain medication and Zofran for nausea and vomiting. Surgery was consulted and patient was admitted for further assessment and management. Patient seen and examined at bedside. The patient underwent open appendectomy this morning. Surgical procedure revealed a ruptured appendicitis with a localized abscess, which was evacuated. Cultures were submitted of the peritoneal fluid, which was aspirated. The patient still reports abdominal pain which is expected post surgical procedure. We will continue on IV cefazolin and IV metronidazole at this time. GAIL drainage was placed and is currently draining 60 cc since surgery. We will continue current medical management at this time. Patient is tolerating clear liquid diet. ROS Constitutional: Denies weight loss, fever and chills. HEENT: Denies changes in vision and hearing. Respiratory: Denies shortness of breath and cough Cardiovascular: Denies chest discomfort or palpitations GI: Reports moderate abdominal pain at the level of the incision. Denies nausea, vomiting or diarrhea. : Denies dysuria and urinary frequency. Musculoskeletal: Denies myalgias and joint pain Skin: Denies rash and pruritus. Neurological: Denies dizziness, headache, vision or hearing problems Objective vital signs Vital Sign Date Time Temp Pulse Resp B/P (MAP) Pulse Ox O2 Delivery O2 Flow Rate FiO2 06/27/24 12:32 98.6 79 16 107/68 (81) 96 98.6 06/27/24 10:20 Room Air* 0 21 Total Intake and Output 06/26/24 06/26/24 06/27/24 15:00 23:00 07:00 Intake Total 300 ml 100 ml Balance 300 ml 100 ml medications Current Medications Medications Dose Ordered Sig/Hany Route Start Time Stop Time Status Last Admin Dose Admin Ondansetron HCl 4 mg Q4HP PRN IV 06/26/24 20:15 06/27/24 02:59 4 MG Morphine Sulfate 2 mg Q4HPRN PRN IV 06/26/24 20:15 06/27/24 05:28 2 MG Nitroglycerin 0.4 mg Q5MINP PRN SL 06/26/24 20:15 Morphine Sulfate 2 mg Q30M PRN IV 06/26/24 20:15 Potassium Chloride/Dextrose/ Sod Cl 1,000 ml @ 120 mls/hr Q8H20M IV 06/27/24 09:00 06/27/24 12:26 120 MLS/HR Cefazolin Sodium/ Dextrose 50 ml @ 50 mls/hr Q8H IV 06/27/24 10:00 06/27/24 10:13 50 MLS/HR Metronidazole 100 ml @ 100 mls/hr Q8HR IV 06/27/24 14:00 06/27/24 14:45 100 MLS/HR Hydromorphone HCl 0.5 mg Q2HPRN PRN IV 06/27/24 09:00 Ondansetron HCl 4 mg Q4HPRN PRN IV 06/27/24 09:00 Examination Physical Examination General: Patient alert and oriented in person, place and time. Patient following commands. HEENT: Normocephalic, atraumatic, moist mucous membranes Respiratory/pulmonary: Clear lungs bilaterally, no associated crackles or wheezes. Cardiovascular: Normal heart sounds S1 and S2 with no associated murmurs Abdomen: Abdomen nondistended, there is pain at the periumbilical region at the level of the incision, incision looks clean and dressed with clean gauze with no evidence of serosanguineous/purulent secretion at this time. There is no masses palpated. GAIL drainage in place draining approximately 60 cc since placement. Extremities: There is no peripheral edema present at the lower extremities. Peripheral Pulses: 3+ Radial (R). 3+ Radial (L). 3+ Dorsalis pedis (R). 3+ Dorsalis pedis(L) Skin: No rashes or pruritus, there is no sacral edema present at this time. Neurological: Intact cranial nerves with no focal neurologic deficits laboratory and microbiology Laboratory Tests 06/27/24 06:22 Test 06/27/24 06:22 Range/Units Serum Glucose 100 74-106 mg/dL Problem List/Assessment/Plan Problem List/Assessment/Plan Assessment/plan Acute abdominal pain likely due to acute appendicitis with a suspected ruptured Status post open appendectomy performed today (Jun 27 2024) -initial CT of the abdomen and pelvis showed acute appendicitis with suspected rupture with a 4.6 cm of collection fluid and small locules of gas likely phlegmon. -surgery was consulted and an open appendectomy was performed today without complication -GAIL drainage was placed and is currently draining 60 cc since placement. -continue IV cefazolin -continue IV metronidazole -continue pain medications -continue Zofran 4 mg p.r.n. for nausea/vomiting -patient is currently on clear liquid diet which is tolerating. Hypokalemia resolved -potassium was 3.4 -potassium replaced Goals of care discussed with the patient at bedside, FULL CODE Plan discussed with Dr. Branham Plan discussed with: Patient Date of Service: Jun 27, 2024 Billing Provider: CATE FORREST MD Common Visit Codes: [id number] INP/OBS CARE(HIGH) MARIA TERESA PANDEY RESIDENT Jun 27, 2024 15:38 CATE FORREST MD Jun 27, 2024 21:24
[2024-06-28] VITALS (8 sets, daily range): BP systolic 106–112; BP diastolic 70–71; PULSE 65–94; RESP 16–18; TEMP 97.7–99.7; O2SAT 94–96
[2024-06-28] MEDS: ACETAMINOPHEN 325 MG TAB PO PRN (02:12)
[2024-06-28 07:00] LABS: Basophils # (auto) 0 10 ^3/uL (0-0.2); Basophils % (auto) 0.1 % (0.0-2.0); Eosinophils # (auto) 0 10 ^3/uL (0-0.8); Hematocrit 40.6 % (41.0-53.0); Lymphocytes # (auto) 0.6 10 ^3/uL (0.4-5.4); Lymphocytes % (auto) 6.4 % (10.0-50.0); Mean Corpuscular Hemoglobin 30.7 pg (28.0-32.0); Mean Corpuscular Hgb Conc. 34.5 g/dL (32.0-36.0); Mean Corpuscular Volume 88.9 fL (80.0-100.0); Monocytes # (auto) 0.8 10 ^3/uL (0-1.3); Monocytes % (auto) 9.3 % (0.0-12.0); Neutrophils # (auto) 7.3 10 ^3/uL (1.6-8.6); Neutrophils % (auto) 84.2 % (37.0-80.0); Platelet Count (auto) 134 10^3/uL (140-450); Red Blood Cells 4.56 10^6/uL (4.5-5.90); Red Cell Distribution Width 13.9 % (11.8-14.3); White Blood Cell 8.7 10^3/uL (4.4-10.8)
[2024-06-28 07:08] LABS: Calcium 9.2 mg/dL (8.7-10.4); Carbon Dioxide 25 mmol/L (20-31)
[2024-06-28 07:13] LABS: BUN/Creatinine Ratio 14.9 (10.0-20.0); Blood Urea Nitrogen 11 mg/dL (9-23)
[2024-06-28 07:15] LABS: Anion Gap 7 (5-15)
[2024-06-28 07:16] LABS: Chloride 104 mmol/L (98-107); Glucose 124 mg/dL (74-106); Potassium 3.8 mmol/L (3.5-5.1); Sodium 136 mmol/L (136-145)
--- NOTE | 2024-06-28 13:13 | DVHPN2 ---
Progress Note Date Seen: Jun 28, 2024 Has the PT tested + for MRSA If YES, has PT been informed?: No Medical Necessity Reason Pt with a Central, PICC or Fol: No Objective vital signs Vital Sign Date Time Temp Pulse Resp B/P (MAP) Pulse Ox O2 Delivery O2 Flow Rate FiO2 06/28/24 12:45 98.0 78 16 107/70 (82) 96 98.0 06/27/24 20:00 Room Air* 0 21 Total Intake and Output 06/27/24 06/27/24 06/28/24 15:00 23:00 07:00 Intake Total 290 ml 1380 ml 250 ml Output Total 60 ml 50 ml 30 ml Balance 230 ml 1330 ml 220 ml medications Current Medications Medications Dose Ordered Sig/Hany Route Start Time Stop Time Status Last Admin Dose Admin Morphine Sulfate 2 mg Q4HPRN PRN IV 06/26/24 20:15 06/27/24 21:45 2 MG Nitroglycerin 0.4 mg Q5MINP PRN SL 06/26/24 20:15 Morphine Sulfate 2 mg Q30M PRN IV 06/26/24 20:15 Cefazolin Sodium/ Dextrose 50 ml @ 50 mls/hr Q8H IV 06/27/24 10:00 06/28/24 10:06 50 MLS/HR Metronidazole 100 ml @ 100 mls/hr Q8HR IV 06/27/24 14:00 06/28/24 05:22 100 MLS/HR Hydromorphone HCl 0.5 mg Q2HPRN PRN IV 06/27/24 09:00 Ondansetron HCl 4 mg Q4HPRN PRN IV 06/27/24 09:00 Acetaminophen 650 mg Q8HP PRN PO 06/27/24 23:15 06/28/24 02:12 650 MG laboratory and microbiology Laboratory Tests 06/28/24 06:17 Test 06/28/24 06:17 Range/Units Serum Glucose 124 H 74-106 mg/dL Problem List/Assessment/Plan Problem List/Assessment/Plan 06/28/24 PATIENT VERY RELUCTANT TO MOVE, ABDOMEN IS APPROPRIATELY TENDER, SOFT, NON DISTENDED, PATIENT ENCOURAGED TO AMBULATE AND WILL ADVANCE PO INTAKE Plan discussed with: Patient ADELINA TRAVIS MD Jun 28, 2024 13:13
--- NOTE | 2024-06-28 14:00 | DVHPNRES ---
Progress Note Date Seen: Jun 28, 2024 Resident Creating Document: MARIA TERESA PANDEY RESIDENT Has the PT tested + for MRSA If YES, has PT been informed?: No Medical Necessity Reason Pt with a Central, PICC or Fol: No Subjective Review of Systems This is a 28-year-old male with no past medical history per patient, who presented to the ED with chief complaint of acute abdominal pain. The patient reported a two day history of lower abdominal pain that was characterized by sharp pain rated as 8/10 on the pain scale localized in the right lower quadrant. The patient also reported associated nausea and vomiting with intermittent fever. The patient states that the pain was localized with no specific pattern of radiation. Initial CT scan of the abdomen and pelvis showed acute appendicitis with suspected rupture showing a 4.6 cm of collection fluid and small locule of gas likely phlegmon. Patient was started on IV antibiotics, IV fluids, pain medication and Zofran for nausea and vomiting. Surgery was consulted and patient was admitted for further assessment and management. Patient is seen and examined at bedside. The patient is status post open appendectomy day 1, the patient still reports moderate abdominal pain in the periumbilical region in the area of the incisions. We explained that the pain is expected as postoperative changes. The patient is still describes the pain as a 7/10 on the pain scale the patient states that has not passed any bowel movement yet and no gases until this morning. We encouraged the patient to ambulate as tolerated, stone up and sit in the chair. Diet was advanced to full liquid diet, patient is tolerating without nausea or vomiting. We will continue current medical management. GAIL drainage is draining approximately 30 cc in the last 12 hours. We will continue on IV metronidazole and cefazolin. ROS Constitutional: Denies weight loss, fever and chills. HEENT: Denies changes in vision and hearing. Respiratory: Denies shortness of breath and cough Cardiovascular: Denies chest discomfort or palpitations GI: Reports moderate abdominal pain in the periumbilical region at the level of the incisions. No nausea, vomiting or diarrhea. : Denies dysuria and urinary frequency. Musculoskeletal: Denies myalgias and joint pain Skin: Denies rash and pruritus. Neurological: Denies dizziness, headache, vision or hearing problems Objective vital signs Vital Sign Date Time Temp Pulse Resp B/P (MAP) Pulse Ox O2 Delivery O2 Flow Rate FiO2 06/28/24 12:45 98.0 78 16 107/70 (82) 96 98.0 06/27/24 20:00 Room Air* 0 21 Total Intake and Output 06/27/24 06/27/24 06/28/24 15:00 23:00 07:00 Intake Total 290 ml 1380 ml 250 ml Output Total 60 ml 50 ml 30 ml Balance 230 ml 1330 ml 220 ml medications Current Medications Medications Dose Ordered Sig/Hany Route Start Time Stop Time Status Last Admin Dose Admin Morphine Sulfate 2 mg Q4HPRN PRN IV 06/26/24 20:15 06/27/24 21:45 2 MG Nitroglycerin 0.4 mg Q5MINP PRN SL 06/26/24 20:15 Morphine Sulfate 2 mg Q30M PRN IV 06/26/24 20:15 Cefazolin Sodium/ Dextrose 50 ml @ 50 mls/hr Q8H IV 06/27/24 10:00 06/28/24 10:06 50 MLS/HR Metronidazole 100 ml @ 100 mls/hr Q8HR IV 06/27/24 14:00 06/28/24 05:22 100 MLS/HR Hydromorphone HCl 0.5 mg Q2HPRN PRN IV 06/27/24 09:00 Ondansetron HCl 4 mg Q4HPRN PRN IV 06/27/24 09:00 Acetaminophen 650 mg Q8HP PRN PO 06/27/24 23:15 06/28/24 02:12 650 MG Examination Physical Examination General: Patient alert and oriented in person, place and time. Patient following commands. HEENT: Normocephalic, atraumatic, moist mucous membranes Respiratory/pulmonary: Clear lungs bilaterally, no associated crackles or wheezes. Cardiovascular: Normal heart sounds S1 and S2 with no associated murmurs Abdomen: Abdomen nondistended, there is still pain at the periumbilical region at the level of the incisions. Incisions look dry and clean without oozing of serosanguineous or purulent material. No masses palpated at this time. Extremities: There is no peripheral edema present at the lower extremities. Peripheral Pulses: 3+ Radial (R). 3+ Radial (L). 3+ Dorsalis pedis (R). 3+ Dorsalis pedis(L) Skin: No rashes or pruritus, there is no sacral edema present at this time. Neurological: Intact cranial nerves with no focal neurologic deficits laboratory and microbiology Laboratory Tests 06/28/24 06:17 Test 06/28/24 06:17 Range/Units Serum Glucose 124 H 74-106 mg/dL Microbiology Date/Time Source Procedure Growth Status 06/27/24 08:30 Peritoneal Fluid Gram Stain - Final Resulted 06/27/24 08:30 Peritoneal Fluid Anaerobic Culture Pending Resulted 06/27/24 08:30 Peritoneal Fluid Aerobic Culture - Preliminary Resulted Problem List/Assessment/Plan Problem List/Assessment/Plan Assessment/plan Acute abdominal pain likely due to acute appendicitis with a suspected ruptured Status post open appendectomy day 1 -initial CT of the abdomen and pelvis showed acute appendicitis with suspected rupture with a 4.6 cm of collection fluid and small locules of gas likely phlegmon. -surgery was consulted and an open appendectomy was performed today without complication -GAIL drainage was placed and is currently draining 30 cc in the last 12 hours -continue IV cefazolin -continue IV metronidazole -continue pain medications -continue Zofran 4 mg p.r.n. for nausea/vomiting -diet was advanced to full liquid diet. -surgery on board, recommended ambulation as tolerated to help activate in bowel movements -patient still reports no bowel movement at this time. Hypokalemia resolved -potassium was 3.4 -potassium replaced ACP, discussed with the patient and family members at bedside for 10 minutes Goals of care discussed with the patient at bedside, FULL CODE Plan discussed with Dr. Branham Plan discussed with: Patient Date of Service: Jun 28, 2024 Billing Provider: CATE FORREST MD Common Visit Codes: [id number] INP/OBS CARE(HIGH) MARIA TERESA PANDEY RESIDENT Jun 28, 2024 14:00 CATE FORREST MD Jun 30, 2024 15:41
[2024-06-28] MEDS ORDERED: ROCURONIUM 10MG/ML 10ML VIAL IV ONE (14:06)
[2024-06-29] VITALS (7 sets, daily range): BP systolic 102–114; BP diastolic 68–78; PULSE 69–82; RESP 18–20; TEMP 97.8–99; O2SAT 93–97
--- NOTE | 2024-06-29 08:00 | DVHPNRES ---
Progress Note Date Seen: Jun 29, 2024 Resident Creating Document: MARIA TERESA PANDEY RESIDENT Has the PT tested + for MRSA If YES, has PT been informed?: No Medical Necessity Reason Pt with a Central, PICC or Fol: No Subjective Review of Systems This is a 28-year-old male with no past medical history per patient, who presented to the ED with chief complaint of acute abdominal pain. The patient reported a two day history of lower abdominal pain that was characterized by sharp pain rated as 8/10 on the pain scale localized in the right lower quadrant. The patient also reported associated nausea and vomiting with intermittent fever. The patient states that the pain was localized with no specific pattern of radiation. Initial CT scan of the abdomen and pelvis showed acute appendicitis with suspected rupture showing a 4.6 cm of collection fluid and small locule of gas likely phlegmon. Patient was started on IV antibiotics, IV fluids, pain medication and Zofran for nausea and vomiting. Surgery was consulted and patient was admitted for further assessment and management. Patient seen and examined at bedside. The patient is status post open appendectomy day two. The patient still reporting mild abdominal tenderness at the level of the incision in the periumbilical region rated as a 5/10 on the pain scale but states that he is much better compared to yesterday. The patient is currently on a full liquid diet which has been tolerating without nausea or vomiting. The patient mentioned it passing gases but no bowel movement yet. GAIL drain is draining approximately 42 cc in the last 24 hours. Incisional wound looks dry and clean without oozing or any serosanguineous fluid coming out from the wound. We ordered physical therapy and encouraged the patient to the ambulate as tolerated. We will advanced diet per surgery recommendations. ROS Constitutional: Denies weight loss, fever and chills. HEENT: Denies changes in vision and hearing. Respiratory: Denies shortness of breath and cough Cardiovascular: Denies chest discomfort or palpitations GI: Reports mild abdominal tenderness, denies nausea, vomiting or diarrhea : Denies dysuria and urinary frequency. Musculoskeletal: Denies myalgias and joint pain Skin: Denies rash and pruritus. Neurological: Denies dizziness, headache, vision or hearing problems Objective vital signs Vital Sign Date Time Temp Pulse Resp B/P (MAP) Pulse Ox O2 Delivery O2 Flow Rate FiO2 06/29/24 05:00 98.9 69 19 104/68 (80) 97 98.9 06/28/24 20:00 Room Air* 0 21 21 Total Intake and Output 06/28/24 06/28/24 06/29/24 15:00 23:00 07:00 Intake Total 50 ml 1050 ml 470 ml Output Total 285 ml 878 ml Balance 50 ml 765 ml -408 ml medications Current Medications Medications Dose Ordered Sig/Hany Route Start Time Stop Time Status Last Admin Dose Admin Morphine Sulfate 2 mg Q4HPRN PRN IV 06/26/24 20:15 06/28/24 21:29 2 MG Nitroglycerin 0.4 mg Q5MINP PRN SL 06/26/24 20:15 Morphine Sulfate 2 mg Q30M PRN IV 06/26/24 20:15 Cefazolin Sodium/ Dextrose 50 ml @ 50 mls/hr Q8H IV 06/27/24 10:00 06/29/24 01:56 50 MLS/HR Metronidazole 100 ml @ 100 mls/hr Q8HR IV 06/27/24 14:00 06/29/24 05:10 100 MLS/HR Hydromorphone HCl 0.5 mg Q2HPRN PRN IV 06/27/24 09:00 Ondansetron HCl 4 mg Q4HPRN PRN IV 06/27/24 09:00 Acetaminophen 650 mg Q8HP PRN PO 06/27/24 23:15 06/28/24 02:12 650 MG Examination Physical Examination General: Patient alert and oriented in person, place and time. Patient following commands. HEENT: Normocephalic, atraumatic, moist mucous membranes Respiratory/pulmonary: Clear lungs bilaterally, no associated crackles or wheezes. Cardiovascular: Normal heart sounds S1 and S2 with no associated murmurs Abdomen: Abdomen nondistended, there is mild to moderate tenderness to palpation at the periumbilical region at the level of the incisions. GAIL drain in place draining 42 cc in the last 24 hours. Wounds look dry and clean, there is no oozing coming out from the wound at this time. No masses palpated at the a bdomen. Extremities: There is no peripheral edema present at the lower extremities. Peripheral Pulses: 3+ Radial (R). 3+ Radial (L). 3+ Dorsalis pedis (R). 3+ Dorsalis pedis(L) Skin: No rashes or pruritus, there is no sacral edema present at this time. Neurological: Intact cranial nerves with no focal neurologic deficits laboratory and microbiology Test 06/29/24 06:52 Range/Units Serum Glucose Pending Microbiology Date/Time Source Procedure Growth Status 06/27/24 08:30 Peritoneal Fluid Gram Stain - Final Resulted 06/27/24 08:30 Peritoneal Fluid Anaerobic Culture - Preliminary Resulted 06/27/24 08:30 Peritoneal Fluid Aerobic Culture - Preliminary Resulted Problem List/Assessment/Plan Problem List/Assessment/Plan Assessment/plan Acute abdominal pain likely due to acute appendicitis with a suspected ruptured Status post open appendectomy day 2 -initial CT of the abdomen and pelvis showed acute appendicitis with suspected rupture with a 4.6 cm of collection fluid and small locules of gas likely phlegmon. -surgery was consulted and an open appendectomy was performed today without complication -GAIL drainage was placed and is currently draining 42 cc in the last 24 hours -continue IV cefazolin -continue IV metronidazole -continue pain medications -continue Zofran 4 mg p.r.n. for nausea/vomiting -diet was advanced to full liquid diet. -surgery on board, recommended ambulation as tolerated to help activate in bowel movements -patient still reports no bowel movement but is passing gasses -Advance diet to mechanical soft if tolerated, follow surgery recommendations -Awaiting for surgical clearance. Hypokalemia -potassium was 3.4 -potassium replaced Goals of care discussed with the patient at bedside, FULL CODE Plan discussed with Dr. Branham Plan discussed with: Patient My Orders My Orders Orders - MARIA TERESA PANDEY Procedure Category Date Status Time Comprehensive LAB 06/29/24 In Process Metabolic Panel 04:00 Magnesium LAB 06/29/24 In Process 04:00 Complete Blood Count LAB 06/29/24 In Process 04:00 Pt Request For Service PT 06/29/24 Logged 07:55 Date of Service: Jun 29, 2024 Billing Provider: CATE FORREST MD Common Visit Codes: [id number] INP/OBS CARE(HIGH) MARIA TERESA PANDEY RESIDENT Jun 29, 2024 08:00 CATE FORREST MD Jun 30, 2024 15:59
[2024-06-29 08:29] LABS: Basophils # (auto) 0 10 ^3/uL (0-0.2); Basophils % (auto) 0.2 % (0.0-2.0); Eosinophils # (auto) 0 10 ^3/uL (0-0.8); Eosinophils % (auto) 0.1 % (0.0-7.0); Hematocrit 39.3 % (41.0-53.0); Hemoglobin 13.8 g/dL (13.5-17.5); Lymphocytes # (auto) 1.5 10 ^3/uL (0.4-5.4); Lymphocytes % (auto) 18.2 % (10.0-50.0); Mean Corpuscular Hemoglobin 31.3 pg (28.0-32.0); Mean Corpuscular Volume 89.3 fL (80.0-100.0); Monocytes # (auto) 1.2 10 ^3/uL (0-1.3); Monocytes % (auto) 13.9 % (0.0-12.0); Neutrophils # (auto) 5.6 10 ^3/uL (1.6-8.6); Neutrophils % (auto) 67.6 % (37.0-80.0); Nucleated Red Blood Cells % 0.1 %; Platelet Count (auto) 171 10^3/uL (140-450); Red Cell Distribution Width 13.6 % (11.8-14.3); White Blood Cell 8.3 10^3/uL (4.4-10.8)
[2024-06-29 08:37] LABS: Alanine Aminotransferase 32 U/L (7-40); Alkaline Phosphatase 90 U/L (46-116); Anion Gap 2 (5-15); BUN/Creatinine Ratio 19.5 (10.0-20.0); Blood Urea Nitrogen 15 mg/dL (9-23); Calcium 9.3 mg/dL (8.7-10.4); Carbon Dioxide 26 mmol/L (20-31); Chloride 101 mmol/L (98-107); Glucose 85 mg/dL (74-106); Magnesium 1.9 mg/dL (1.6-2.6)
[2024-06-29 08:38] LABS: Albumin 3.8 g/dL (3.2-4.8); Aspartate Aminotransferase 23 U/L (13-40)
[2024-06-29 08:39] LABS: Bilirubin, Total 0.6 mg/dL (0.2-1.0); Total Protein 6.1 g/dL (5.7-8.2)
[2024-06-29 08:42] LABS: Potassium 3.4 mmol/L (3.5-5.1); Sodium 129 mmol/L (136-145)
[2024-06-29] MEDS: POTASSIUM CHL 20MEQ/100ML 100 ML IV ONE (11:21)
--- NOTE | 2024-06-29 12:54 | DVHPN2 ---
Progress Note Date Seen: Jun 29, 2024 Has the PT tested + for MRSA If YES, has PT been informed?: No Medical Necessity Reason Pt with a Central, PICC or Fol: No Subjective Patient reports: No new complaints, Feels better Review of Systems: HEENT:Normal, CVS:Normal, RESPIRATORY:Normal, GI:Normal, :Normal, MSK:Normal, NEURO:Normal Objective vital signs Vital Sign Date Time Temp Pulse Resp B/P (MAP) Pulse Ox O2 Delivery O2 Flow Rate FiO2 06/29/24 09:00 97.8 72 18 109/72 (84) 93 97.8 06/29/24 07:30 Room Air* 0 21 Total Intake and Output 06/28/24 06/28/24 06/29/24 15:00 23:00 07:00 Intake Total 50 ml 1050 ml 470 ml Output Total 285 ml 878 ml Balance 50 ml 765 ml -408 ml medications Current Medications Medications Dose Ordered Sig/Hany Route Start Time Stop Time Status Last Admin Dose Admin Morphine Sulfate 2 mg Q4HPRN PRN IV 06/26/24 20:15 06/28/24 21:29 2 MG Nitroglycerin 0.4 mg Q5MINP PRN SL 06/26/24 20:15 Morphine Sulfate 2 mg Q30M PRN IV 06/26/24 20:15 Cefazolin Sodium/ Dextrose 50 ml @ 50 mls/hr Q8H IV 06/27/24 10:00 06/29/24 09:08 50 MLS/HR Metronidazole 100 ml @ 100 mls/hr Q8HR IV 06/27/24 14:00 06/29/24 05:10 100 MLS/HR Hydromorphone HCl 0.5 mg Q2HPRN PRN IV 06/27/24 09:00 Ondansetron HCl 4 mg Q4HPRN PRN IV 06/27/24 09:00 Acetaminophen 650 mg Q8HP PRN PO 06/27/24 23:15 06/28/24 02:12 650 MG Examination: GENERAL:Normal, HEENT:Normal, NECK:Normal, LUNGS:Normal, CVS:Normal, ABDOMEN:Normal, MSK:Normal, SKIN:Normal laboratory and microbiology Laboratory Tests 06/29/24 06:52 Test 06/29/24 06:52 Range/Units Serum Glucose 85 74-106 mg/dL Problem List/Assessment/Plan Problem List/Assessment/Plan 06/29/24 patient feeling better, no BM, passing gas, abdomen soft, non distended, appropriately tender, wound clean dry and intact, GAIL drain serous sanguinous fluid, advance diet as tolerated, ambulate every 24 hours, OK to discharge in 24 hours, patient to follow up in clinic in 2 weeks. Plan discussed with: Patient, Other Dietary Evaluation Review Comments: 1) Advance pt diet when medically feasible 2) Continue current plan of care Expected Outcomes/Goals: 1) Pt diet to advance 2) F/U in 3-5 days JUAN M ABERNATHY NP Jun 29, 2024 12:54
[2024-06-30 01:00] VITALS: BP 108/70; PULSE 82; RESP 20; TEMP 98.9; O2SAT 97
[2024-06-30 05:00] VITALS: BP 105/72; PULSE 87; RESP 20; TEMP 98.2; O2SAT 100
[2024-06-30 06:30] LABS: Basophils # (auto) 0 10 ^3/uL (0-0.2); Basophils % (auto) 0.3 % (0.0-2.0); Eosinophils # (auto) 0 10 ^3/uL (0-0.8); Eosinophils % (auto) 0.3 % (0.0-7.0); Hematocrit 41.7 % (41.0-53.0); Hemoglobin 14.4 g/dL (13.5-17.5); Lymphocytes # (auto) 1.7 10 ^3/uL (0.4-5.4); Lymphocytes % (auto) 16.5 % (10.0-50.0); Mean Corpuscular Hemoglobin 30.8 pg (28.0-32.0); Mean Corpuscular Hgb Conc. 34.4 g/dL (32.0-36.0); Mean Corpuscular Volume 89.4 fL (80.0-100.0); Monocytes # (auto) 1.3 10 ^3/uL (0-1.3); Monocytes % (auto) 12.5 % (0.0-12.0); Neutrophils # (auto) 7.3 10 ^3/uL (1.6-8.6); Neutrophils % (auto) 70.4 % (37.0-80.0); Platelet Count (auto) 230 10^3/uL (140-450); Red Blood Cells 4.66 10^6/uL (4.5-5.90); Red Cell Distribution Width 13.9 % (11.8-14.3); White Blood Cell 10.4 10^3/uL (4.4-10.8)
[2024-06-30 06:32] LABS: Chloride 103 mmol/L (98-107)
[2024-06-30 06:33] LABS: Anion Gap 8 (5-15); Calcium 9.3 mg/dL (8.7-10.4); Carbon Dioxide 24 mmol/L (20-31)
[2024-06-30 06:38] LABS: BUN/Creatinine Ratio 19.7 (10.0-20.0); Blood Urea Nitrogen 15 mg/dL (9-23); Glucose 95 mg/dL (74-106)
[2024-06-30 06:42] LABS: Potassium 3.4 mmol/L (3.5-5.1); Sodium 135 mmol/L (136-145)
[2024-06-30 08:00] VITALS: PULSE 78; RESP 19; O2SAT 96
[2024-06-30 09:00] VITALS: BP 104/69; PULSE 78; RESP 19; TEMP 98.9; O2SAT 96
[2024-06-30] MEDS: POTASSIUM CHL 20 Meq TABLET PO ONE (09:34)
[2024-06-30] MEDS ORDERED: IBUP1TAB5 PO (10:22)
[2024-06-30] MEDS ORDERED: AUG875T PO (10:22)
--- NOTE | 2024-06-30 10:44 | DVHPN2 ---
Progress Note Date Seen: Jun 30, 2024 Has the PT tested + for MRSA If YES, has PT been informed?: No Medical Necessity Reason Pt with a Central, PICC or Fol: No Objective vital signs Vital Sign Date Time Temp Pulse Resp B/P (MAP) Pulse Ox O2 Delivery O2 Flow Rate FiO2 06/30/24 09:00 98.9 78 19 104/69 (81) 96 98.9 06/29/24 20:00 Room Air* 0 21 Total Intake and Output 06/29/24 06/29/24 06/30/24 15:00 23:00 07:00 Intake Total 380 ml 750 ml 150 ml Output Total 200 ml Balance 380 ml 750 ml -50 ml medications Current Medications Medications Dose Ordered Sig/Hany Route Start Time Stop Time Status Last Admin Dose Admin Morphine Sulfate 2 mg Q4HPRN PRN IV 06/26/24 20:15 06/29/24 21:59 2 MG Nitroglycerin 0.4 mg Q5MINP PRN SL 06/26/24 20:15 Morphine Sulfate 2 mg Q30M PRN IV 06/26/24 20:15 Cefazolin Sodium/ Dextrose 50 ml @ 50 mls/hr Q8H IV 06/27/24 10:00 06/30/24 09:34 50 MLS/HR Metronidazole 100 ml @ 100 mls/hr Q8HR IV 06/27/24 14:00 06/30/24 05:19 100 MLS/HR Hydromorphone HCl 0.5 mg Q2HPRN PRN IV 06/27/24 09:00 Ondansetron HCl 4 mg Q4HPRN PRN IV 06/27/24 09:00 Acetaminophen 650 mg Q8HP PRN PO 06/27/24 23:15 06/28/24 02:12 650 MG laboratory and microbiology Laboratory Tests 06/30/24 05:48 Test 06/30/24 05:48 Range/Units Serum Glucose 95 74-106 mg/dL Problem List/Assessment/Plan Problem List/Assessment/Plan 06/28/24 PATIENT VERY RELUCTANT TO MOVE, ABDOMEN IS APPROPRIATELY TENDER, SOFT, NON DISTENDED, PATIENT ENCOURAGED TO AMBULATE AND WILL ADVANCE PO INTAKE 06/30/24 doing well, wound ok, abdomen non distended, appropriately tender, OK to discharge, patient to return to clinic in two weeks, needs antibiotic to go home with Plan discussed with: Patient Dietary Evaluation Review Comments: 1) Advance pt diet when medically feasible 2) Continue current plan of care Expected Outcomes/Goals: 1) Pt diet to advance 2) F/U in 3-5 days ADELINA TRAVIS MD Jun 30, 2024 10:44
--- NOTE | 2024-06-30 10:54 | DVHDSRES ---
Discharge Summary Date of Admission Resident Creating Document: MARIA TERESA PANDEY RESIDENT Jun 26, 2024 at 20:07 Date of Discharge: Jun 30, 2024 Admitting Diagnosis Acute abdominal pain due to possible appendicitis. Wounds: No wounds present at this time. There are surgical incisions after open appendectomy the periumbilical region with a GAIL drainage in place. Labs/Diagnostic Data: Laboratory Results Test 06/30/24 05:48 06/29/24 06:52 06/26/24 17:52 06/26/24 15:51 White Blood Count 10.4 10^3/uL (4.4-10.8) Red Blood Count 4.66 10^6/uL (4.5-5.90) Hemoglobin 14.4 g/dL (13.5-17.5) Hematocrit 41.7 % (41.0-53.0) Mean Corpuscular Volume 89.4 fL (80.0-100.0) Mean Corpuscular Hemoglobin 30.8 pg (28.0-32.0) Mean Corpuscular Hemoglobin Concent 34.4 g/dL (32.0-36.0) Red Cell Distribution Width 13.9 % (11.8-14.3) Platelet Count 230 10^3/uL (140-450) Mean Platelet Volume 8.6 fL (6.9-10.8) Neutrophils (%) (Auto) 70.4 % (37.0-80.0) Lymphocytes (%) (Auto) 16.5 % (10.0-50.0) Monocytes (%) (Auto) 12.5 % (0.0-12.0) Eosinophils (%) (Auto) 0.3 % (0.0-7.0) Basophils (%) (Auto) 0.3 % (0.0-2.0) Neutrophils # (Auto) 7.3 10 ^3/uL (1.6-8.6) Lymphocytes # (Auto) 1.7 10 ^3/uL (0.4-5.4) Monocytes # (Auto) 1.3 10 ^3/uL (0-1.3) Eosinophils # (Auto) 0 10 ^3/uL (0-0.8) Basophils # (Auto) 0 10 ^3/uL (0-0.2) Nucleated Red Blood Cells 0.0 % Sodium Level 135 mmol/L (136-145) Potassium Level 3.4 mmol/L (3.5-5.1) Chloride Level 103 mmol/L (98-107) Carbon Dioxide Level 24 mmol/L (20-31) Anion Gap 8 (5-15) Blood Urea Nitrogen 15 mg/dL (9-23) Creatinine 0.76 mg/dL (0.700-1.30) Glomerular Filtration Rate Calc 124 mL/min (>90) BUN/Creatinine Ratio 19.7 (10.0-20.0) Serum Glucose 95 mg/dL (74-106) Calcium Level 9.3 mg/dL (8.7-10.4) Magnesium Level 1.9 mg/dL (1.6-2.6) Total Bilirubin 0.6 mg/dL (0.2-1.0) Aspartate Amino Transferase (AST) 23 U/L (13-40) Alanine Aminotransferase (ALT) 32 U/L (7-40) Alkaline Phosphatase 90 U/L (46-116) Total Protein 6.1 g/dL (5.7-8.2) Albumin 3.8 g/dL (3.2-4.8) Prothrombin Time 11.9 sec (9.3-11.8) Prothrombin Time INR 1.13 (0.9-1.15) Activated Partial Thromboplast Time 29.1 SEC (24.5-34.5) Influenza Type A Antigen Negative (Negative) Influenza Type B Antigen Negative (Negative) SARS-CoV-2 Antigen (Rapid) Negative (NEGATIVE) Test 06/26/24 15:36 Lipase 35 U/L (12-53) Other Laboratory Tests 06/30/24 05:48 Brief Hx & Hospital Course: Hospitalization course: This is a 28-year-old male with no past medical history per patient, who presented to the ED with chief complaint of acute abdominal pain. The patient reported a two day history of lower abdominal pain that was characterized by sharp pain rated as 8/10 on the pain scale localized in the right lower quadrant. The patient also reported associated nausea and vomiting with intermittent fever. The patient states that the pain was localized with no specific pattern of radiation. Initial CT scan of the abdomen and pelvis showed acute appendicitis with suspected rupture showing a 4.6 cm of collection fluid and small locule of gas likely phlegmon. The patient was started on IV cefazolin and metronidazole and surgery was consulted for possible laparoscopic/open appendectomy. Open appendectomy was performed on 06/27/24. Today, the patient is status post day three of open appendectomy without complications. GAIL drain is draining approximately 20 cc in the last 24 hours. The patient is currently tolerating mechanical soft diet and states that he is passing gases without complications but not bowel movement yet. The patient is ambulating without difficulty and abdominal pain is very mild improved compared to admission. We will discharge the patient on Augmentin one tab b.i.d. for five days and ibuprofen 600 mg q.8 hours p.r.n. the patient needs to follow up with PCP in one week and with the surgeon in two weeks for possible GAIL drain removal and reassessment. Patient agrees and understands the plan. Admitting diagnosis: Acute renal pain likely due to acute appendicitis Discharge Plan -Prog diet as tolerated, currently on [facility] soft -Start Augmentin 875 1 tab BID for 5 days -F/U with PCP in 1 week -F/U with surgeon in 2 weeks for GAIL drain removal and reassessment. Consults/Reason for consult Surgery for open appendectomy due to acute appendicitis with possible rupture. Operations or Procedures CLINICAL INFORMATION: 28 years old, Male; Diffuse periumbilical pain. TECHNIQUE: Axial CT images of the abdomen and pelvis were obtained without IV contrast. Coronal and sagittal reformatted images were obtained, reviewed, and stored. Evaluation of the parenchymal organs is limited without IV contrast. Evaluation of the bowel and mesentery is limited without oral contrast. All CT scans at this medical facility are performed using dose modulation techniques as appropriate to a performed exam including the following: Automated exposure control was utilized; adjustment of the MA and/or KV according to patient size; and use of iterative reconstruction technique. CTDIvol = 12.13 mGy DLP = 720.07 mGy-cm COMPARISON: None FINDINGS: Lung bases: Lung bases are clear. Liver: Grossly unremarkable in its noncontrast enhanced appearance. No abnormal density or focal lesion identified. Biliary: No calcified gallstones or biliary ductal dilatation. Spleen: Unremarkable. Pancreas: Grossly unremarkable in its noncontrast enhanced appearance. Adrenal glands: Unremarkable. No mass. Kidneys: No hydronephrosis. No renal or ureteral calculi. Aorta/Vascular: No aneurysm or significant calcification. Retroperitoneum: No mass or lymphadenopathy. Bowel/mesentery: Nonspecific nondilated fluid-filled small bowel loops. No small bowel obstruction. Appendix is , with moderate periappendiceal stranding and fluid consistent with acute appendicitis. There is an appendicolith within the lumen of the appendix. There is a fluid collection and adjacent locule of gas in the right lower quadrant in close proximity to the appendix, measuring up to 3.5 x 3.8 x 4.6 cm, may be due to rupture with associated phlegmon. No free air visualized elsewhere in the abdomen or pelvis. Pelvic organs: Grossly unremarkable. Bladder: Unremarkable. No mass. Abdominal wall: No mass or hernia. Bones: No acute fracture or suspicious intraosseous lesion. IMPRESSION: 1. Findings consistent with acute appendicitis with suspected rupture, with adjacent 4.6 cm collection with fluid and small locules of gas, likely phlegmon. Limited evaluation for abscess on noncontrast enhanced CT. 2. Nonspecific nondilated fluid-filled small bowel loops, likely due to ileus. 3. Additional findings as described above. Critical findings Critical Result: Findings consistent with acute appendicitis with evidence for possible rupture and phlegmon. CHEST RADIOGRAPH Indication: preop Technique: Single frontal view of the chest was obtained Comparison: None FINDINGS: Lines and Tubes: None Lungs: No focal consolidation. Pleura: No effusion. No pneumothorax. Cardiomediastinal contours: Unremarkable Bones: No acute osseous abnormality. IMPRESSION: No acute cardiopulmonary disease. Condition at Discharge: Good Final Diagnosis/Problems List Acute abdominal pain likely due to acute appendicitis with a suspected ruptured Status post open appendectomy day 3 Hypokalemia, resolved Discharge Disposition: Home Discharge Instruct/Medications Diet: Regular Activity: No Restrictions, As Tolerated Follow Up/Referral: F/U with PCP in 1 week F/U with surgery in 2 weeks for GAIL drain removal and reassessment Medications: Augmentin 875mg 1tab BID for 5 days PO Ibuprophen 600mg Q8 PRN for 5 days Discharge Statement: "Patient was advised to return to the ER or call 911 if any headaches, dizziness, shortness of breath, chest pain, abdominal pain, bleeding, fevers, or worsening of medical condition. Patient was counseled about treatment plan, medications, possible side effects, patientverbalized understanding. All questions were answered to the best of my ability. This discharge took greater then 30 minutes in planning, reviewing documentation, counseling the patient, and discussing with other team members." ASSESSMENT ASSESSMENT Assessment Acute abdominal pain likely due to acute appendicitis with a suspected ruptured Status post open appendectomy day 3 Hypokalemia, resolved Date of Service: Jun 30, 2024 Billing Provider: CATE FORREST MD Common Visit Codes: 86201-RVI/OBS DISCH DAY >30min MARIA TERESA PANDEY RESIDENT Jun 30, 2024 10:54 CATE FORREST MD Jun 30, 2024 16:36
[2024-06-30 11:49] VITALS: BP 104/69; PULSE 78; RESP 19; TEMP 98.9; O2SAT 96
== END 2024-06-30 15:40 | disposition home or self-care (01) | DRG 233 ==
LOC: ER 15:16 → TELE 20:07 → TELE-EAST 23:33 → EAST 06-28
PROVIDERS: ADMIT Student in an Organized Health Care Education/Training Program; ATTEND Emergency Medicine
PROC: 0WJG4ZZ Inspection of Peritoneal Cavity, Percutaneous Endoscopic Approach (ICD-10-PCS; 2024-06-27)
PROC: 0DTJ0ZZ Resection of Appendix, Open Approach (ICD-10-PCS; principal; 2024-06-27 07:25)
DX: K35.33 Acute appendicitis with perforation, localized peritonitis, and gangrene, with abscess (principal); E87.1 Hypo-osmolality and hyponatremia; E87.6 Hypokalemia; Z53.31 Laparoscopic surgical procedure converted to open procedure; Z79.2 Long term (current) use of antibiotics; Z79.899 Other long term (current) drug therapy; Z87.891 Personal history of nicotine dependence
CPT/HCPCS: 36415; 71045; 74176; 80048; 80053; 83690; 83735; 85025; 85610; 85730; 86850; 86900; 86901; 87070; 87075; 87076; 87077; 87186; 87205; 87426; 87804; 97110; 97116; 97163; 97530; G0378; J0330; J1100; J1885; J2250; J2405; J2543; J2704; J3480; J3490; Q0162

== ENCOUNTER 2024-07-03 13:23 | Emergency (ER) | payer MEDICAID ==
[~2024-07-03] VITALS: Ht 162.6 cm; Wt 72.4 kg
[~2024-07-03 13:23] MED LIST changes: +ASCO500T11 PO; +AUG875T PO; +BIOT1CAP OR; +IBUP1TAB5 PO; +MULT-1018 PO
--- NOTE | 2024-07-03 14:31 | ED.PDOC ---
History of Present Illness(SKN HPI Comments 28 y.o male presents to the ED for an evaluation of wound check. Patient reports one week ago he had an appendectomy, had a GAIL tube placed and states today he noticed increased serous fluid into his GAIL drain when he laid down. Patient denies any fever, chills, pain or swelling to surgical site. Denies any other palliative provocative factors. Denies modifying factors. Denies radiation of symptoms. Denies not complain of pain. Chief Complaint: Wound Check Time Seen by MD: 14:20 Primary Care Provider: none History of Present Illness: Nurses Notes, Medications, Allergies Allergies: Coded Allergies: NO KNOWN ALLERGIES (Unverified , 06/28/22) Home Meds Active Scripts Ibuprofen Micronized (Ibuprofen) 600 Mg Tab, 600 MG PO Q8HP PRN for 5 Days, #15 TAB Prov:MARIA TERESA PANDEY RESIDENT 06/30/24 Amoxicillin & Pot Clavulanate (AUGMENTIN TABLET) 875 Mg Tb, 875 MG PO BID for 5 Days, #10 TAB Prov:MARIA TERESA PANDEY RESIDENT 06/30/24 Amoxicillin & Pot Clavulanate (Augmentin) 500 Mg Tab, 1 TAB PO BID, #14 TAB Prov:HAMILTON STOLL 10/22/23 Amoxicillin & Pot Clavulanate (Augmentin) 500 Mg Tab, 500 MG PO BID for 10 Days, #20 TAB Prov:KALI WILLAMS ENTRY ANALYST 06/28/22 Reported Medications Multiple Vitamin (Multivitamins) Tab, 1 TAB PO DAILY, #90 TAB 3 Refills 06/27/24 Biotin (BIOTIN) 1 Mg Cap, 1 MG OR, CAP 06/27/24 Ascorbic Acid (VITAMIN C TABLET) 500 Mg Tb, 1 TAB PO DAILY, #30 TAB 06/27/24 Information Source: Patient Mode of Arrival: Ambulatory Severity: Moderate Timing: Hours Duration: Since onset Location: Abdomen Mechanism: Preceding Wound Wound Type: Other History of: None Associated Signs and Symptoms: None Past Medical History PAST MEDICAL HISTORY: Denies Surgical History: Appendectomy Family History Family History: Reviewed,noncontributory to illness, Unknown Social History Smoker: Non-Smoker Alcohol: Denies ETOH Use Drugs: Denies Drug Use Lives In: Home Constitutional: denies: chills, diaphoresis, fatigue, fever, malaise, sweats, weakness, others EENTM: denies: blurred vision, double vision, ear bleeding, ear discharge, ear drainage, ear pain, ear ringing, eye pain, eye redness, hearing loss, mouth pain, mouth swelling, nasal discharge, nose bleeding, nose congestion, nose pain, photophobia, tearing, throat pain, throat swelling, voice changes, others Respiratory: denies: cough, hemoptysis, orthopnea, SOB at rest, shortness of breath, SOB with excertion, stridor, wheezing, others Cardiovascular: denies: chest pain, dizzy spells, diaphoresis, Dyspnea on exertion, edema, irregular heart beat, left arm pain, lightheadedness, palpitations, PND, syncope, others Gastrointestinal: denies: abdomen distended, abdominal pain, blood streaked bowels, constipated, diarrhea, dysphagia, difficulty swallowing, hematemesis, melena, nausea, poor appetite, poor fluid intake, rectal bleeding, rectal pain, vomiting, others Genitourinary: denies: burning, dysuria, flank pain, frequency, hematuria, incontinence, penile discharge, penile sore, pain, testicle pain, testicle swelling, urgency, others Neurological: denies: dizziness, fainting, headache, left sided numbness, left sided weakness, numbness, paresthesia, pre-existing deficit, right sided numbne ss, right sided weakness, seizure, speech problems, tingling, tremors, weakness, others Musculoskeletal: denies: back pain, gout, joint pain, joint swelling, muscle pain, muscle stiffness, neck pain, others Integumetry: reports: wounds (GAIL tube dicharge ); denies: bruises, change in color, change in hair/nails, dryness, laceration, lesions, lumps, rash, others Allergic/Immunocompromised: denies: Difficulty Healing, Frequent Infections, Hives, Itching, others Hematologic/Lymphatic: denies: anemia, blood clots, easy bleeding, easy bruising, swollen glands, others Endocrine: denies: excessive hunger, excessive sweating, excessive thirst, excessive urination, flushing, intolerance to cold, intolerance to heat, unexplained weight gain, unexplained weight loss, others Psychiatric: denies: anxiety, bipolar disorder, depression, hopeless, panic disorder, schizophrenia, sleepless, suicidal, others Physical Exam General Appearance: No Apparent Distress, Normal HEENT: Normal ENT Inspection, Pharynx Normal, TMs Normal Neck: Full Range of Motion, Non-Tender, Normal, Normal Inspection Respiratory: Chest Non-Tender, Lungs Clear, No Accessory Muscle Use, No Respiratory Distress, Normal Breath Sounds Cardiovascular: No Edema, No JVD, No Murmur, No Gallop, Normal Peripheral Pulses, Regular Rate/Rhythm Breast Exam: Deferred Gastrointestinal: No Organomegaly, Non Tender, No Pulsatile Mass, Normal Bowel Sounds, Soft Genitalia: Deferred Pelvic: Deferred Rectal: Deferred Extremities: No calf tenderness, Normal capillary refill, Normal inspection, Normal range of motion, Non-tender, No pedal edema Musculoskeletal : Apperance: Normal Neurologic: Alert, captain/airline pilot II-XII nml as Tested, No Motor Deficits, Normal Affect, Normal Mood, No Sensory Deficits Cerebellar Function: Normal Reflexes: Normal Skin: Wounds (serous fluid to the GAIL tube, no tenderness or erythema around the site noted. ) Lymphatic: No Adenopathy Was a procedure done? Was a procedure done?: No Differential Diagnosis (INTG) Differential Diagnosis: Cellulitis X-Ray, Labs, Meds, VS Vital Signs Date Time Temp Pulse Resp B/P (MAP) Pulse Ox O2 Delivery O2 Flow Rate FiO2 07/03/24 13:43 97.8 82 17 112/66 (81) 96 07/03/24 13:26 97.8 82 17 112/66 (81) 96 97.8 Lab Test 07/03/24 15:56 Range/Units White Blood Count 13.0 H 4.4-10.8 10^3/uL Red Blood Count 5.12 4.5-5.90 10^6/uL Hemoglobin 15.8 13.5-17.5 g/dL Hematocrit 46.2 # 41.0-53.0 % Mean Corpuscular Volume 90.1 80.0-100.0 fL Mean Corpuscular Hemoglobin 30.8 28.0-32.0 pg Mean Corpuscular Hemoglobin Concent 34.1 32.0-36.0 g/dL Red Cell Distribution Width 13.7 11.8-14.3 % Platelet Count 478 #H 140-450 10^3/uL Mean Platelet Volume 7.5 6.9-10.8 fL Neutrophils (%) (Auto) 73.6 37.0-80.0 % Lymphocytes (%) (Auto) 17.0 10.0-50.0 % Monocytes (%) (Auto) 8.3 0.0-12.0 % Eosinophils (%) (Auto) 0.5 0.0-7.0 % Basophils (%) (Auto) 0.6 0.0-2.0 % Neutrophils # (Auto) 9.6 H 1.6-8.6 10 ^3/uL Lymphocytes # (Auto) 2.2 0.4-5.4 10 ^3/uL Monocytes # (Auto) 1.1 0-1.3 10 ^3/uL Eosinophils # (Auto) 0.1 0-0.8 10 ^3/uL Basophils # (Auto) 0.1 0-0.2 10 ^3/uL Nucleated Red Blood Cells 0.2 % Sodium Level 134 L 136-145 mmol/L Potassium Level 4.1 3.5-5.1 mmol/L Chloride Level 100 98-107 mmol/L Carbon Dioxide Level 27 20-31 mmol/L Anion Gap 7 5-15 Blood Urea Nitrogen 11 9-23 mg/dL Creatinine 0.76 0.700-1.30 mg/dL Glomerular Filtration Rate Calc 124 >90 mL/min BUN/Creatinine Ratio 14.5 10.0-20.0 Serum Glucose 95 74-106 mg/dL Calcium Level 10.1 8.7-10.4 mg/dL Total Bilirubin 0.6 0.2-1.0 mg/dL Aspartate Amino Transferase (AST) 34 13-40 U/L Alanine Aminotransferase (ALT) 93 H 7-40 U/L Alkaline Phosphatase 79 46-116 U/L Total Protein 7.2 5.7-8.2 g/dL Albumin 4.5 3.2-4.8 g/dL Exam: CT CT AB PEL WO CON-NO ORAL OR IV History: GAIL drain position Comparison Study: None available at time of dictation. TECHNIQUE: Multidetector CT of the abdomen was performed from lung bases to pubic symphysis. Imaging was performed without IV contrast. Axial, coronal and sagittal multiplanar reformats were obtained from the axial data set by the technologist. Radiation Dose Information: CT Dose: CTDI volume is 6.21 mGy. Dose-length product is 347.43 mGy*cm FINDINGS: Evaluation of solid organs is limited due to lack of intravenous contrast use. Findings: Lung Bases: No acute or significant lung base finding. Normal heart size. No pleural or pericardial effusion. Liver: The liver is normal in size. No focal lesions. Gallbladder and Biliary Tree: Unremarkable Spleen: Unremarkable Pancreas: The pancreas is grossly normal in appearance. Adrenal Glands: Unremarkable Kidneys: Kidneys are grossly normal without calculi or hydronephrosis. Bladder: Grossly unremarkable for degree of distention. Bowel: The stomach is grossly normal in appearance. Small bowel and colon are normal in caliber and distribution. The appendix is not visualized; however, no secondary findings of acute appendicitis identified. Ascites: Absent Lymphadenopathy: No mesenteric, retroperitoneal or periportal lymphadenopathy. Abdominal Wall and Mesentery: Unremarkable. Vasculature: The visualized abdominal aorta is normal in size and caliber. Evaluation of abdominal and pelvic vessels is limited due to lack of intravenous contrast. Pelvic Organs: GAIL drain in place Musculoskeletal: No aggressive focal bony lesions, acute fractures or dislocation. Soft tissues: Unremarkable IMPRESSION: 1. . GAIL drain in place X-Ray, Labs, Meds, VS Comment This 28-year-old male presents to emergency room secondary to increased drainage from his GAIL drain when he was laid down. A CT scan was completed and shows the drain being in the appropriate location.. Patient was informed that it is not uncommon to have different amount of output she has 2 GAIL drains depending on the position. He was labs otherwise were benign except for a minimally elevated white count. Patient endorses being on antibiotics. As such, antibiotics were not ordered. The patient was discharged home. Asked to follow up with the operating surgeon in the morning or return to the ER for new/worse/worsening symptoms. Time of 1ST Reevaluation: 14:25 Reevaluation 1ST: Unchanged Patient Education/Counseling: Diagnosis, Treatment, Prognosis Family Education/Counseling: No Family Present Departure 1 Departure Time of Disposition: 17:08 Impression: Primary Impression: August mcgee drain site pain Disposition: 01 HOME / SELF CARE / HOMELESS Condition: Good Discharged With: Self Critical Care Note Critical Care Time?: No Stability Stability form required: No I personally scribed for DOUGLAS HILTON MD ([email or web address]) on 07/03/24 at 14:31. Electronically submitted by Joan Aguilera ([facility]). I personally scribed for DOUGLAS HILTON MD ([email or web address]) on 07/03/24 at 15:33. Electronically submitted by Joan Aguilera ([facility]). DOUGLAS HILTON MD Jul 03, 2024 14:31
--- NOTE | 2024-07-03 15:11 | DVH ---
Exam: CT CT AB PEL WO CON-NO ORAL OR IV History: GAIL drain position Comparison Study: None available at time of dictation. TECHNIQUE: Multidetector CT of the abdomen was performed from lung bases to pubic symphysis. Imaging was performed without IV contrast. Axial, coronal and sagittal multiplanar reformats were obtained fr om the axial data set by the technologist. Radiation Dose Information: CT Dose: CTDI volume is 6.21 mGy. Dose-length product is 347.43 mGy*cm FINDINGS: Evaluation of solid organs is limited due to lack of intravenous contrast use. Findings: Lung Bases: No acute or significant lung base finding. Normal heart size. No pleural or pericardial effusion. Liver: The liver is normal in size. No focal lesions. Gallbladder and Biliary Tree: Unremarkable Spleen: Unremarkable Pancreas: The pancreas is grossly normal in appearance. Adrenal Glands: Unremarkable Kidneys: Kidneys are grossly normal without calculi or hydronephrosis. Bladder: Grossly unremarkable for degree of distention. Bowel: The stomach is grossly normal in appearance. Small bowel and colon are normal in caliber and d istribution. The appendix is not visualized; however, no secondary findings of acute appendicitis id entified. Ascites: Absent Lymphadenopathy: No mesenteric, retroperitoneal or periportal lymphadenopathy. Abdominal Wall and Mesentery: Unremarkable. Vasculature: The visualized abdominal aorta is normal in size and caliber. Evaluation of abdominal a nd pelvic vessels is limited due to lack of intravenous contrast. Pelvic Organs: GAIL drain in place Musculoskeletal: No aggressive focal bony lesions, acute fractures or dislocation. Soft tissues: Unremarkable IMPRESSION: 1. . GAIL drain in place Radiation optimization: All CT scans at this facility use at least one of these dose optimization romel hniques: automated exposure control mA and/or kV adjustment per patient size (includes targeted exam s where dose is matched to clinical indication) or iterative reconstruction. HS:Y
[2024-07-03 16:18] LABS: Basophils # (auto) 0.1 10 ^3/uL (0-0.2); Hemoglobin 15.8 g/dL (13.5-17.5); Lymphocytes # (auto) 2.2 10 ^3/uL (0.4-5.4); Neutrophils % (auto) 73.6 % (37.0-80.0); Red Cell Distribution Width 13.7 % (11.8-14.3)
[2024-07-03 16:19] LABS: Basophils % (auto) 0.6 % (0.0-2.0); Eosinophils # (auto) 0.1 10 ^3/uL (0-0.8); Eosinophils % (auto) 0.5 % (0.0-7.0); Hematocrit 46.2 % (41.0-53.0); Mean Corpuscular Hemoglobin 30.8 pg (28.0-32.0); Mean Corpuscular Hgb Conc. 34.1 g/dL (32.0-36.0); Mean Corpuscular Volume 90.1 fL (80.0-100.0); Monocytes # (auto) 1.1 10 ^3/uL (0-1.3); Monocytes % (auto) 8.3 % (0.0-12.0); Neutrophils # (auto) 9.6 10 ^3/uL (1.6-8.6); Nucleated Red Blood Cells % 0.2 %; Platelet Count (auto) 478 10^3/uL (140-450); Red Blood Cells 5.12 10^6/uL (4.5-5.90)
[2024-07-03 16:35] LABS: Albumin 4.5 g/dL (3.2-4.8); Alkaline Phosphatase 79 U/L (46-116); Anion Gap 7 (5-15); Aspartate Aminotransferase 34 U/L (13-40); BUN/Creatinine Ratio 14.5 (10.0-20.0); Bilirubin, Total 0.6 mg/dL (0.2-1.0); Blood Urea Nitrogen 11 mg/dL (9-23); Calcium 10.1 mg/dL (8.7-10.4); Carbon Dioxide 27 mmol/L (20-31); Chloride 100 mmol/L (98-107); Glucose 95 mg/dL (74-106); Potassium 4.1 mmol/L (3.5-5.1); Total Protein 7.2 g/dL (5.7-8.2)
[2024-07-03 16:38] LABS: Alanine Aminotransferase 93 U/L (7-40); Sodium 134 mmol/L (136-145)
[2024-07-03 17:23] VITALS: BP 102/71; TEMP 98.3
[2024-07-03 17:25] VITALS: PULSE 76; RESP 19; O2SAT 97
== END 2024-07-03 17:30 | disposition home or self-care (01) ==
LOC: ER 13:23
DX: T85.848A Pain due to other internal prosthetic devices, implants and grafts, initial encounter (principal); Z90.49 Acquired absence of other specified parts of digestive tract
CPT/HCPCS: 36415; 74176; 80053; 85025